=== PATIENT | female | born 1965 | race Caucasian/White ===

== ENCOUNTER → 2018-05-01 09:40 | Outpatient (CLI) | payer OTHER, SELFPAY ==
[2018-05-01 11:56] LABS: Free T3, Triiodothyronine Free 5.17 pg/mL (2.77-5.27); Free T4, Direct Thyroxine 0.94 ng/dL (0.78-2.19)
[2018-05-01 12:10] LABS: Thyroid Stimulating Hormone 2.99 uIU/mL (0.47-4.68)
[2018-05-02 15:20] LABS: Anti Thyroglobulin Antibody < 1 IU/mL (< 2); Thyroglobulin Level 14.5 ng/mL (2.8-40.9); Thyroid Peroxidase Antibodies 1 IU/mL (< 9)
== END ==
PROVIDERS: Family Provider Internal Medicine; PCP Internal Medicine; Visit Provider Naturopath
DX: E03.9 Hypothyroidism, unspecified (principal); D49.7 Neoplasm of unspecified behavior of endocrine glands and other parts of nervous system
CPT/HCPCS: 36415; 84432; 84439; 84443; 84481; 86376; 86800

== ENCOUNTER 2018-08-29 03:26 | Emergency (ER) | payer OTHER, SELFPAY ==
--- NOTE | 2018-08-29 03:29 | ED_ITS ---
HPI - General Adult General Chief complaint: Urogenital-Female Stated complaint: states has a raging bladder infection Time Seen by Provider: 08/29/18 03:28 Source: patient Mode of arrival: ambulatory Limitations: no limitations History of Present Illness HPI narrative: 53-year-old female who has had multiple kidney stones in the past and also urinary tract infections here for evaluation because she states that approximately 0100 hr in the morning she had an onset of which she thinks was a urinary tract infection to include blood in her urine and frequency and hesitancy. She states she recently was on antibiotics for a infection around her eye. She states that afterwards she developed a yeast infection. She was treating that on her own at home. She thinks that her home treatment for the yeast infection is what caused that urinary tract infection. She states that her symptoms do not exactly feel like prior kidney stones but did come on rather suddenly. She states that it does feel somewhat like a urinary tract infection but she has not had 1 in a normal time has not tried anything for her symptoms prior to arrival. She states she has spontaneously passed all of her prior kidney stones. Related Data Home Medications Medication Instructions Recorded Confirmed [Nature-Throid ] #0 12/26/16 magnesium citrate 1 tab PO BID #0 12/26/16 Previous Rx's Medication Instructions Recorded cephalexin [Keflex] 500 mg PO BID 5 Days #10 cap 08/29/18 fluconazole [Diflucan] 100 mg PO DAILY #2 tab 08/29/18 phenazopyridine [Pyridium] 100 mg PO TID 2 Days #6 tab 08/29/18 Allergies Allergy/AdvReac Type Severity Reaction Status Date / Time nut - unspecified Allergy Mild tree nuts Verified 08/29/18 03:46 [NUT - UNSPECIFIED] aspirin [ASPIRIN] Allergy Unknown swelling, Verified 08/29/18 03:46 SOB gluten [GLUTEN] Allergy Unknown Verified 08/29/18 03:46 latex [LATEX] Allergy Unknown Verified 08/29/18 03:46 morphine Allergy Verified 08/29/18 03:46 DAIRY Allergy Unknown Uncoded 08/29/18 03:46 LICOPINE-TOMATOES Allergy Unknown Uncoded 08/29/18 03:46 SUGAR Allergy Unknown Uncoded 08/29/18 03:46 Review of Systems Constitutional Denies fever(s) Cardiovascular Denies chest pain and Denies dyspnea Respiratory Denies dyspnea Gastrointestinal Gastrointestinal: Reports abdominal pain, Denies nausea and Denies vomiting Genitourinary Reports hematuria, Reports urinary frequency, Reports difficulty voiding, Reports dysuria, Denies flank pain, Reports urinary hesitancy, Reports urinary urgency and Denies vaginal discharge Musculoskeletal Denies myalgias and Denies arthralgias Integumentary/Breasts Denies rash Hematologic/Lymphatic Denies easy bleeding and Denies easy bruising PFSH Surgical History History of lumpectomy Status post delivery Status post hysterectomy Status post tubal ligation Family History Grandfather Heart disease Grandmother Diabetes mellitus Mother Age: 70 MS (multiple sclerosis) Grandfather Diabetes mellitus Essential hypertension Grandmother Cancer Social History Smoking Status: Never smoker Family History Grandfather Heart disease Grandmother Diabetes mellitus Mother Age: 70 MS (multiple sclerosis) Grandfather Diabetes mellitus Essential hypertension Grandmother Cancer Social History Smoking Status: Never smoker Exam Initial Vital Signs Initial Vital Signs: Vital Signs Temperature 97.4 F L 08/29/18 04:03 Pulse Rate 74 08/29/18 04:03 Respiratory Rate 16 08/29/18 04:03 Blood Pressure 143/112 H 08/29/18 04:03 Pulse Oximetry 100 08/29/18 04:03 Const General: cooperative, healthy appearing, comfortable, well developed, well groomed and No acute distress Orientation: alert, awake and oriented x3 HENMT Head: normal to inspection and normocephalic Resp Effort & Inspection: normal respiratory effort Cardio Rate: regular rate Rhythm: regular rhythm Pulses: radial pulses present GI Inspection: non-distended Palpation: soft and No firm Back/Spine/Pelvis Back: No CVA tenderness Skin Lesions: no lesions Rashes: no rashes Neuro General: alert, awake and oriented x3 Cognition: normal cognition Speech: speech normal Extrem General: normal to inspection and capillary refill normal Psych Appearance: grossly normal and well kempt Course Orders Ordered: ED Orders 08/29/18 03:55 Urine Culture Stat Urine Microscopic Stat 08/29/18 04:06 Basic Metabolic Panel Stat Discontinued Medications Hydromorphone HCl (Dilaudid) 0.5 mg IV NOW ONE Stop: 08/29/18 03:51 Last Admin: 08/29/18 04:01 Dose: Not Given Hydromorphone HCl (Dilaudid) 1 mg IM Q4H ONE Stop: 08/29/18 03:58 Last Admin: 08/29/18 04:01 Dose: 1 mg Morphine Sulfate (Morphine) 4 mg IV NOW ONE Stop: 08/29/18 03:41 Last Admin: 08/29/18 04:01 Dose: Not Given Vital Signs - 8 hr 08/29/18 04:03 Temperature 97.4 F L Pulse Rate 74 Respiratory Rate 16 Blood Pressure 143/112 H Pulse Oximetry 100 Medical Decision Making Lab Data Lab results reviewed: Yes I reviewed the patient's lab results. Result diagrams: 08/29/18 04:06 Lab Results 08/29/18 08/29/18 Range/Units 03:55 04:06 Sodium 137 (137-145) mmol/L Potassium 4.2 (3.4-5.1) mmol/L Chloride 102 (98-107) mmol/L Carbon Dioxide 25 (22-32) mmol/L BUN 16 (7-17) mg/dL Creatinine 0.80 (0.52-1.04) mg/dL Estimated GFR > 60.0 (>60) mL/min BUN/Creatinine Ratio 20.0 (6-22) Glucose 101 H (70-100) mg/dL Calcium 9.7 (8.4-10.2) mg/dL Urine RBC >100/hpf H (0-5/HPF) Urine WBC 5-10/hpf H (0-5/HPF) Ur Squamous Epith Cells 0-1 /hpf Urine Bacteria Occasional (0-1) (None) Ur Culture Indicated? Specimen cultured Urine Dip Bedside Urine Glucose Negative Bedside Urine Bilirubin + 1 Bedside Urine Ketone +/- 5 Urine Specific [place] 1.015 Bedside Urine Occult Blood ++ Bedside Urine pH 8.0 Bedside Urine Protein ++ 100 Bedside Urine Urobilinogen 1+ 2mg Bedside Urine Nitrite + Positive Bedside Urine Leukocytes +++ 500 Esterase Point of care testing: Urine Dip Bedside Urine Glucose Negative Bedside Urine Bilirubin + 1 Bedside Urine Ketone +/- 5 Urine Specific [place] 1.015 Bedside Urine Occult Blood ++ Bedside Urine pH 8.0 Bedside Urine Protein ++ 100 Bedside Urine Urobilinogen 1+ 2mg Bedside Urine Nitrite + Positive Bedside Urine Leukocytes +++ 500 Esterase MDM Narrative Medical decision making narrative: patient's urinalysis today is nitrite positive. Given her symptoms this is consistent with a urinary tract infection. Her physical exam is not consistent with pyelonephritis. Kidney function is unremarkable. She does have blood in her urine however she states this feels more like a urinary tract infection rather than a kidney stone. Will send home with a prescription for antibiotics and Pyridium. She states that she does get yeast infections when she takes antibiotics will also give a prescription for Diflucan. The urine culture was pending at the time of discharge. Patient was informed of this. She was given return precautions. Patient states that she is not allergic to put feels likes she has a sensitivity to sulfa drugs so she would like to avoid these If possible. Discharge Plan Departure Patient Disposition: Home Clinical Impression: Urinary tract infection Qualifiers: Urinary tract infection type: acute cystitis Hematuria presence: with hematuria Qualified Code(s): N30.01 - Acute cystitis with hematuria Instructions: DI for Urinary Tract Infection (UTI) Activity Restrictions/Additional Instructions: be sure to increase Your fluid intake. Take your antibiotics as directed. contact your primary care doctor for a follow-up. Return to the emergency department any new symptoms. Worsening pain. Inability to take your antibiotics. Back pain. Or any other new or worsening symptoms. Prescriptions: New fluconazole [Diflucan] 100 mg tablet 100 mg PO DAILY Qty: 2 RF: 0 phenazopyridine [Pyridium] 100 mg tablet 100 mg PO TID 2 Days Qty: 6 RF: 0 cephalexin [Keflex] 500 mg capsule 500 mg PO BID 5 Days Qty: 10 RF: 0 No Action magnesium citrate 100 MG tablet 1 tab PO BID Qty: 0 RF: 0 [Nature-Throid ] Qty: 0 RF: 0 Referrals: Khushbu Dan ARNP [Primary Care Provider] -
[2018-08-29] MEDS: HYDROMORPHONE 2 MG INJ 1 MG IM (04:01)
[2018-08-29 04:03] VITALS: BP 143/112; PULSE 74; RESP 16; TEMP 36.3; O2SAT 100; BMI 29.2
[2018-08-29 04:03] LABS: Bacteria Urine Occasional (0-1); RBC Urine >100/HPF (0-5/HPF); Squamous Epithelial Cell Urine 0-1 /HPF; WBC Urine 5-10/HPF (0-5/HPF)
[2018-08-29 04:04] LABS: Culture Indicated Urine Specimen Cultured
[2018-08-29 04:26] LABS: Blood Urea Nitrogen 16 mg/dL (7-17); Calcium 9.7 mg/dL (8.4-10.2); Carbon Dioxide 25 mmol/L (22-32); Chloride 102 mmol/L (98-107); Estimated Glomerular Filt Rate > 60.0 mL/min (>60); Glucose 101 mg/dL (70-100); HEMOLYSIS < 15 (0-50); Potassium 4.2 mmol/L (3.4-5.1); Sodium 137 mmol/L (137-145)
[2018-08-29 04:47] VITALS: BP 146/90; PULSE 68; RESP 16; O2SAT 100
== END 2018-08-29 04:40 | disposition home or self-care (01) ==
PROVIDERS: Emergency Provider Emergency Medicine; Family Provider Internal Medicine; PCP Internal Medicine
DX: N30.01 Acute cystitis with hematuria (principal)
CPT/HCPCS: 36415; 80048; 81003; 81015; 87077; 87086; 87186; 96372; 99282; 99283; J1170

== ENCOUNTER → 2019-08-20 09:51 | Outpatient (CLI) | payer OTHER, MEDICAID, SELFPAY ==
[2019-08-20 11:40] LABS: Free T3, Triiodothyronine Free 4.52 pg/mL (2.77-5.27); Free T4, Direct Thyroxine 0.92 ng/dL (0.78-2.19)
[2019-08-20 11:53] LABS: Thyroid Stimulating Hormone 0.22 uIU/mL (0.47-4.68)
== END ==
PROVIDERS: Family Provider Internal Medicine; PCP Internal Medicine; Referring Provider Naturopath; Visit Provider Naturopath
DX: E03.9 Hypothyroidism, unspecified (principal)
CPT/HCPCS: 36415; 84439; 84443; 84481

== ENCOUNTER 2019-12-01 22:16 | Emergency (ER) | payer OTHER, MEDICAID, SELFPAY ==
[2019-12-01 22:19] VITALS: BP 157/93; PULSE 67; RESP 16; TEMP 36.5; O2SAT 98; BMI 26.0
--- NOTE | 2019-12-01 22:32 | DI.RAD.S_ITS ---
PROCEDURE: XR KNEE RT 3V INDICATIONS: fall right knee pain TECHNIQUE: 3 views of the knee were acquired. COMPARISON: None. FINDINGS: Bones: Comminuted, minimally displaced fracture of the patella. Soft tissues: Small suprapatellar joint effusion. No suspicious soft tissue calcifications. IMPRESSION: Patellar fracture. Dictated by: Debby Jo MD, PhD on 12/02/2019 at 9:01 Approved by: Debby Jo MD, PhD on 12/02/2019 at 9:05
--- NOTE | 2019-12-01 22:33 | ED_ITS ---
HPI - Extremity Injury (Lower) General Chief Complaint: Extremity Injury, Lower Stated Complaint: R knee pain Time Seen by Provider: 12/01/19 22:32 Source: patient Mode of arrival: EMS History of Present Illness HPI Narrative: 54-year-old otherwise healthy recently woman presents after stumbling while walking her dog earlier today and landing on both knees and her left hand. She is complaining of bilateral knee pain however the right side is dramatically worse to the point where she is unable to bear weight. There is a minor abrasion to the palmar surface of her left hand without any bony tenderness. Related Data Home Medications Medication Instructions Recorded Confirmed [Nature-Throid ] #0 12/26/16 08/08/19 magnesium citrate 1 tab PO BID #0 12/26/16 08/08/19 Previous Rx's Medication Instructions Recorded fluconazole [Diflucan] 100 mg PO DAILY #2 tab 08/29/18 fluconazole 150 mg tablet 150 mg PO ONCE #2 tab 08/08/19 oxycodone-acetaminophen [Endocet] 1 tab PO Q6H PRN #14 tab 12/02/19 Allergies Allergy/AdvReac Type Severity Reaction Status Date / Time nut - unspecified Allergy Mild tree nuts Verified 08/08/19 09:18 [NUT - UNSPECIFIED] aspirin [ASPIRIN] Allergy Unknown swelling, Verified 08/08/19 09:18 SOB gluten [GLUTEN] Allergy Unknown Verified 08/08/19 09:18 latex [LATEX] Allergy Unknown Verified 08/08/19 09:18 morphine Allergy Verified 08/08/19 09:18 DAIRY Allergy Unknown Uncoded 08/29/18 03:46 LICOPINE-TOMATOES Allergy Unknown Uncoded 08/29/18 03:46 SUGAR Allergy Unknown Uncoded 08/29/18 03:46 Review of Systems Review of Systems Narrative: Pertinent positive and negative findings as per HPI Remainder of review of systems is otherwise unremarkable for Constitutional: Fevers, chills, weakness ENT: No sore throat, neck pain, ear pain CV: Chest pain, palpitations, dyspnea on exertion Respiratory: Cough, wheeze, dyspnea GI: Nausea, vomiting, diarrhea, change in bowel habits, black or bloody stools : Dysuria, hematuria, flank pain MS: Muscle weakness, numbness, joint swelling or warmth Skin: Rashes, nonhealing lesions Neuro: Syncope, dizziness, tingling Patient History Surgical History History of lumpectomy Status post delivery Status post hysterectomy Status post tubal ligation Family History Grandfather Heart disease Grandmother Diabetes mellitus Mother Age: 71 MS (multiple sclerosis) Grandfather Diabetes mellitus Essential hypertension Grandmother Cancer Social History Smoking Status: Never smoker Smoking Status: Never smoker alcohol intake frequency: a few times a month Substance Use Type: does not use Exam Narrative Exam Narrative: General: Alert appropriate in no acute distress Respiratory: Able to speak in full sentences, no obvious respiratory distress Skin: No obvious rashes, warm and dry Neurologic: Grossly intact no obvious asymmetries or abnormalities Psych, appropriate insight and affect, cooperative Extremity: Left hand palmar surface with minor abrasion. No bony tenderness and no wrist pain. Minor abrasion over both knees. Left knee is otherwise unremarkable without effusion and full range of motion without tenderness at the knee and ankle. Right with minor effusion exquisitely tender over the patella and unable to move the leg secondary to pain. She is neurovascularly intact for all extremities Initial Vital Signs Initial Vital Signs: Vital Signs Temperature 97.7 F 12/01/19 22:19 Pulse Rate 67 12/01/19 22:19 Respiratory Rate 16 12/01/19 22:19 Blood Pressure 157/93 H 12/01/19 22:19 Pulse Oximetry 98 12/01/19 22:19 Course Orders Ordered: ED Orders 12/01/19 22:32 XR knee RT 3V Stat Discontinued Medications Bacitracin (Bacitracin) 1 applic TOP NOW ONE Stop: 12/01/19 23:02 Last Admin: 12/01/19 23:17 Dose: 1 applic Documented by: VERONICA Oxycodone/Acetaminophen (Percocet 5/325) 2 tab PO NOW ONE Stop: 12/02/19 00:53 Last Admin: 12/02/19 01:19 Dose: 2 tab Documented by: WALLY Oxycodone/Acetaminophen (Endocet 5/325 Prepack) 1 bottle MISC SEEINSTR ONE Stop: 12/02/19 00:53 Last Admin: 12/02/19 01:20 Dose: 1 bottle Documented by: WALLY Vital Signs Vital signs: Vital Signs - 8 hr 12/01/19 22:19 Temperature 97.7 F Pulse Rate 67 Respiratory Rate 16 Blood Pressure 157/93 H Pulse Oximetry 98 MDM - Extremity Injury (Lower) Medical Records Attestation: I reviewed the patient's medical records. Imaging Data Right knee x-ray: My Impression: Nondisplaced patellar fracture MDM Narrative Medical decision making narrative: Right patella fracture. Straight leg knee immobilizer. Crutches. Pain control. Ortho follow up. NO other significant trauma. Discharge Plan Departure Patient Disposition: Home Clinical Impression: Patellar fracture Qualifiers: Encounter type: initial encounter Fracture type: closed Fracture morphology: unspecified fracture morphology Fracture alignment: nondisplaced Laterality: right Qualified Code(s): S82.001A - Unspecified fracture of right patella, initial encounter for closed fracture Instructions: DI for Patella Fracture Activity Restrictions/Additional Instructions: Thank you for coming in today Your x-ray does suggest a nondisplaced patellar (knee cap) fracture. I am going to place you in a straight leg knee immobilizer and given crutches. I would recommend that you avoid walking on the right side until you have been seen by the orthopedic surgeon and definitive treatment has been outlined. Using 400 mg of ibuprofen (2 [id number] pills) and 1 Tylenol every 6 hours can be very helpful in controlling pain. For severe pain you can try 400 mg of ibuprofen and 1-2 Percocet. Ice and elevation can also be quite helpful. Dr. Sahni with [facility] is our orthopedist on-call [facility]. Please contact their office tomorrow to set up an appointment for further evaluation and definitive treatment of your injury. Good luck with figuring out the stairs in your house. I hope you heal quickly Prescriptions: New oxycodone-acetaminophen [Endocet] 5-325 mg tablet 1 tab PO Q6H PRN (Reason: pain) Qty: 14 RF: 0 No Action magnesium citrate 100 MG tablet 1 tab PO BID Qty: 0 RF: 0 [Nature-Throid ] Qty: 0 RF: 0 fluconazole 150 mg tablet 150 mg PO ONCE Qty: 2 RF: 0 fluconazole [Diflucan] 100 mg tablet 100 mg PO DAILY Qty: 2 RF: 0 Referrals: Ni,Khushbu, GAS ENGINE PERFORMANCE ENGINEER [Primary Care Provider] -
[2019-12-01] MEDS: BACITRACIN OINT 0.9 GM PCKT 1 APPLIC TOP (23:17)
[2019-12-02] MEDS: OXYCODONE/ACETAMINOPHEN 5/325 TABLET 2 TAB PO (01:19)
[2019-12-02] MEDS: OXYCODONE/APAP 5/325 PREPACK 1 BOTTLE MISC (01:20)
[2019-12-02 04:49] VITALS: BP 152/78; PULSE 65; RESP 15; O2SAT 99
== END 2019-12-02 01:55 | disposition home or self-care (01) ==
PROVIDERS: Emergency Provider Emergency Medicine; Family Provider Internal Medicine; PCP Internal Medicine
DX: S82.001A Unspecified fracture of right patella, initial encounter for closed fracture (principal); S60.512A Abrasion of left hand, initial encounter; W19.XXXA Unspecified fall, initial encounter
CPT/HCPCS: 73562; 99283; 99284

== ENCOUNTER → 2020-04-16 17:04 | Outpatient (CLI) | payer OTHER, MEDICAID, SELFPAY ==
--- NOTE | 2020-04-16 17:05 | DI.MG.S_ITS ---
BILATERAL DIGITAL SCREENING MAMMOGRAM 3D/2D WITH CAD: 04/16/2020 CLINICAL: Routine screening. Family history of breast cancer. Comparison is made to exams dated: 09/11/2017 mammogram - [facility], 06/09/2013 mammogram, and 03/26/2012 mammogram - [facility] The tissue of both breasts is heterogeneously dense. This may lower the sensitivity of mammography. Current study was also evaluated with a Computer Aided Detection (CAD) system. No significant masses, calcifications, or other findings are seen in either breast. There has been no significant interval change. IMPRESSION: NEGATIVE There is no mammographic evidence of malignancy. A 1 year screening mammogram is recommended. This exam was interpreted at Station ID: [id number]. NOTE: For mammograms, a report in lay terms will be sent to the patient. Approximately 15% of breast malignancies will not be visualized mammographically. In the management of a palpable breast mass, a negative mammogram must not discourage biopsy of a clinically suspicious lesion. Electronically Signed By: Hector figueroa/luis:04/19/2020 07:31:11 letter sent: Normal Exam ACR BI-RADS Category 1: Negative [id number]
== END ==
PROVIDERS: Family Provider Internal Medicine; PCP Family Medicine; Referring Provider Family Medicine; Visit Provider Family Medicine
DX: Z12.31 Encounter for screening mammogram for malignant neoplasm of breast (principal); Z80.3 Family history of malignant neoplasm of breast
CPT/HCPCS: 77063; 77067

== ENCOUNTER 2020-05-05 16:00 | Outpatient (RCR) | payer OTHER, MEDICAID, SELFPAY ==
--- NOTE | 2020-01-08 11:15 | PT.OIE ---
Current Diagnoses Stiffness of right knee, not elsewhere classified (01/08/20) Other abnormalities of gait and mobility (01/08/20) Nondisplaced comminuted fracture of right patella, initial encounter for closed fracture (01/08/20) Past Surgical History (Last Reviewed 12/02/19 @ 02:38 by Nell Araiza MD) History of lumpectomy Status post delivery Status post hysterectomy Status post tubal ligation Visit Care Team Role Provider Type HUSAM Mackey Family Provider Advanced Ceramic Research Engineer Primary Care Provider Specialty: Family Practice Address: [address] [place] [address], [facility] [place], [address] Email: [email or web address] Virgilio Sahni MD Attending Provider Physician Referring Provider Specialty: Orthopedic Surgery Address: [address] [place] [address], [address] Email: [email or web address] [facility] Initial Evaluation PT-OP-A Visit Information Start: 01/09/20 08:31 Freq: Status: Active Protocol: Document 01/08/20 10:30 DCW (Rec: 01/09/20 08:47 DCW [id number]) Out-Patient Physical Therapy Visit Information Visit Information Visit Type Initial Evaluation Visit Start Time 10:30 Visit Stop Time 11:15 Total Visit Minutes 45 Visit Number 1 Number of FUEL CELL TECHNICIAN Visits 0 Evaluation Information Evaluation Date 01/08/20 PT-OP-B Current Condition Start: 01/09/20 08:31 Freq: Status: Active Protocol: Document 01/08/20 10:30 DCW (Rec: 01/09/20 08:47 DCW [id number]) Current Condition History of Current Condition Onset Date 12/01/19 Current Complaints R knee pain, stiffness, gait difficulty secondary to patellar fracture History of Current Condition Pt is a 54 year old female 5 weeks s/p R patella fracture suffered from falling when walking her dog. Pt has been in a knee immobilizer ever since, and uses bilateral axillary crutches for support. Per ortho consult, pt is WBAT when wearing her immobilizer, however pt entered the clinic today non-weightbearing. Pt states she prefers to not bear weight when she is on unfamiliar surfaces, but is WBAT when at home, often while using only one crutch. 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 With her background, however, she has been able to provide her own lymphatic drainage, which has greatly decreased her edema. PT-OP-C Subjective Start: 01/09/20 08:31 Freq: Status: Active Protocol: Document 01/08/20 10:30 DCW (Rec: 01/09/20 08:47 DCW [id number]) OP-PT Subjective Patient Comments Patient Comments I had a defect in my right knee, and was told at a young age that if I wanted to keep my natural knee, I would need to take care of it, so I have always been really careful about keeping it strong and mobile, without doing any high-impact activities to it. Patient Reported Progress Improving Patient Questionnaires Lower Extremity Functional Scale LEFS Score 26.25 LEFS Impairment 60 to 79% Impaired (Score 17- 31) PT-OP-F Manual Assessment Start: 01/09/20 08:31 Freq: Status: Active Protocol: Document 01/08/20 10:30 DCW (Rec: 01/09/20 11:10 DCW [id number]) Manual Assessments Soft Tissue Assessment Soft Tissue Mobility Assessment Mild edema in soft tissue surrounding knee, no notable joint effusion Joint Mobility Assessment Joint Mobility Assessment Significant limitations with knee ROM, mobility of patella, tenderness to palpation along medial joint line PT-OP-G Mobility & Gait Start: 01/09/20 08:31 Freq: Status: Active Protocol: Document 01/08/20 10:30 DCW (Rec: 01/09/20 11:10 DCW [id number]) OP Gait Assessment Gait Gait Assistance Required: Standby Assistance Distance (Feet) 190 Assistive Devices Assistive Device Axillary Crutches Gait Deviations General Gait Pattern Antalgic,Decreased Stride Length Factors Limiting Gait Function Factors Limiting Gait Function Decreased Strength,Limited Range of Motion,Pain,Poor Balance Comments Gait Comments Pt ambulated full lap around gym using unilateral axillary crutch. No indications of imbalance or safety concerns. Pt able to bear ~50% weight through leg with no difficulty while wearing immobilizer. Stair Climbing Evaluation Evaluation Level of Assist On Stairs Standby Assistance Devices Stair Climbing Assistive Devices Left Railing,Right Railing Technique/Endurance Stair Climbing Direction Ascend and Descend Stair Climbing Technique Step to Step Number of Steps Climbed 4 Comments Stair Climbing Comments Proper technique, no safety concerns, knowledgable with up with good/down with bad memory device PT-OP-K Range of Motion Start: 01/09/20 08:31 Freq: Status: Active Protocol: Document 01/08/20 10:30 DCW (Rec: 01/09/20 11:10 DCW [id number]) Knee Goniometric Range of Motion Knee Right Knee ROM WFL No Patient Position Supine Flexion Active (degrees) 62 Flexion Passive (degrees) 91 Extension Active (degrees) 0 Extension Passive (degrees) 0 Left Knee ROM WFL Yes Knee ROM Limitations Knee ROM Limitations Muscle Weakness,Muscle Tone, Pain PT-OP-L Special Tests Start: 01/09/20 11:10 Freq: Status: Active Protocol: Document 01/08/20 10:30 DCW (Rec: 01/09/20 11:12 DCW [id number]) Special Tests Knee Special Tests Varus- 0 Degrees Test Results R Medial pain along joint line , no laxity Valgus- 0 Degrees Test Results R Medial pain along joint line , no laxity Posterior Draw Test Results Negative Patella Tap Test Results Negative Tyron Test Test Results R Medial pain along joint line Anterior Draw Test Results Negative PT-OP-M Strength Start: 01/09/20 08:31 Freq: Status: Active Protocol: Document 01/08/20 10:30 DCW (Rec: 01/09/20 11:10 DCW [id number]) Knee Strength Knee Manual Muscle Testing Right Flexion (S2) 3- Fair- Extension (L3) 4 Good PT-OP-T Assessment and Plan Start: 01/09/20 08:31 Freq: Status: Active Protocol: Document 01/08/20 10:30 DCW (Rec: 01/09/20 11:10 DCW [id number]) Physical Therapy Assessment Rehab Potential Rehabilitation Potential Good Evaluation Complexity Number of Personal Factors/Comorbidities 1-2 Number of Body Systems Impaired 1-2 Clinical Presentation at Evaluation Stable Impairments Impairments Activity Tolerance,Functional Activities,Functional Mobility ,Gait,Pain,ROM,Strength Goals Three Impairment Limited knee AROM flexion to 62? Short Term Goal (STG) R knee flexion AROM to 100? to improve gait on stairs STG Duration 02/08/20 Pulmonary Nurse Practitioner Goal (LTG) R knee AROM to 120? flexion to enable pt to properly navigate obstacles while hiking. Two Impairment Pt unable to bear weight through flexed knee Senior Care Goal (LTG) Pt to return to holding a semi -squat position with no pain for 20 minutes in order to return to her normal positioning during her job as a massage therapist LTG Duration 03/10/20 One Impairment Pt does not have an appropriate home exercie program Short Term Goal (STG) Pt to be independent and compliant with an appropriate HEP STG Duration 02/08/20 Assessment Summary Assessment Pt presents with pain, decreased ROM, and weakness following a right patella fracture following a fall. Pt is currently using a knee immobilizing brace, and uses axillary crutches to ambulate WBAT, although when out in community walking, she typically prefers non-weight bearing in R LE. Pt complaints of continuing pain with weight bearing, tenderness along her medial joint line, as well as a positive Tyron test, may all just be secondary to her fracture, however they may also indicate meniscal involvement, most likely a mild sprain from the fall. Pt will likely heal with rehab and time, however if rehab does not progress as expected, she may benefit from eventual imaging. Overall, pt doing fairly well, notes she has a defect in her right knee, and was unable to describe it further, however at baseline is against any sort of impact through her knee. Pt should benefit from skilled PT focusing on ROM, gait training, and strengthening, as well as eventual progression of weight bearing through right knee. Physical Therapy Plan Frequency and Duration Frequency of Treatment 2x/Week Duration of Treatment 10 weeks Plan of Care Start Date 01/08/20 Plan of Care End Date 03/18/20 Therapeutic Interventions Therapeutic Interventions Aquatic Therapy,Gait Training, Home Exercise Program,Joint Mobilizations,Manual Therapy, Neuromuscular Re-education, Patient/Caregiver Education, Self-Care/Home Management,Soft Tissue Mobilization, Therapeutic Exercises Modalities Cold Pack/Ice Massage,Electric Stimulation,Hot Packs, Ultrasound Next Visit Focus/Plan Next Note Type Treatment Note Next Visit Plan ROM, strengthening, gait training
--- NOTE | 2020-01-08 11:15 | PT.OPPOC ---
Physical, Occupational & Speech Therapy At [facility] Current Diagnoses Stiffness of right knee, not elsewhere classified (01/08/20) Other abnormalities of gait and mobility (01/08/20) Nondisplaced comminuted fracture of right patella, initial encounter for closed fracture (01/08/20) Visit Care Team Role Provider Type HUSAM Mackey Family Provider Advanced Grinding Machine Operator Portable Primary Care Provider Specialty: Family Practice Address: [address] [place] [address], [facility] [place], [address] Email: [email or web address] Provider Physician Referring Provider Specialty: Orthopedic Surgery Address: [address] [place] [address], [id number] Email: [email or web address] Plan Of Care PT-OP-T Assessment and Plan Start: 01/09/20 08:31 Freq: Status: Active Protocol: Document 01/08/20 10:30 DCW (Rec: 01/09/20 11:10 DCW [id number]) Physical Therapy Assessment Rehab Potential Rehabilitation Potential Good Evaluation Complexity Number of Personal Factors/Comorbidities 1-2 Number of Body Systems Impaired 1-2 Clinical Presentation at Evaluation Stable Impairments Impairments Activity Tolerance,Functional Activities,Functional Mobility ,Gait,Pain,ROM,Strength Goals Three Impairment Limited knee AROM flexion to 62? Short Term Goal (STG) R knee flexion AROM to 100? to improve gait on stairs STG Duration 02/08/20 Senior Living Goal (LTG) R knee AROM to 120? flexion to enable pt to properly navigate obstacles while hiking. 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 Pt is currently using a knee immobilizing brace, and uses axillary crutches to ambulate WBAT, although when out in community walking, she typically prefers non-weight bearing in R LE. Pt complaints of continuing pain with weight bearing, tenderness along her medial joint line, as well as a positive Tyron test, may all just be secondary to her fracture, however they may also indicate meniscal involvement, most likely a mild sprain from the fall. Pt will likely heal with rehab and time, however if rehab does not progress as expected, she may benefit from eventual imaging. Overall, pt doing fairly well, notes she has a defect in her right knee, and was unable to describe it further, however at baseline is against any sort of impact through her knee. Pt should benefit from skilled PT focusing on ROM, gait training, and strengthening, as well as eventual progression of weight bearing through right knee. Physical Therapy Plan Frequency and Duration Frequency of Treatment 2x/Week Duration of Treatment 10 weeks Plan of Care Start Date 01/08/20 Plan of Care End Date 03/18/20 Therapeutic Interventions Therapeutic Interventions Aquatic Therapy,Gait Training, Home Exercise Program,Joint Mobilizations,Manual Therapy, Neuromuscular Re-education, Patient/Caregiver Education, Self-Care/Home Management,Soft Tissue Mobilization, Therapeutic Exercises Modalities Cold Pack/Ice Massage,Electric Stimulation,Hot Packs, Ultrasound Next Visit Focus/Plan Next Note Type Treatment Note Next Visit Plan ROM, strengthening, gait training Plan of Care Dates Plan of Care Start Date 01/08/20 Plan of Care End Date 03/18/20 Electronically Signed by: Gennaro Granados, PT 01/09/20 9502 Please Sign and Return: I have reviewed this Plan of Care and certify that the skilled therapy services above are required to meet the patient?s needs. Physician Signature Date Printed Name and Credentials Clinical Instructor Signature Printed Name and Credentials
--- NOTE | 2020-01-12 10:33 | PT.OTN ---
Current Diagnoses Stiffness of right knee, not elsewhere classified (01/12/20) Other abnormalities of gait and mobility (01/12/20) Nondisplaced comminuted fracture of right patella, initial encounter for closed fracture (01/12/20) Physical Therapy Treatment Note PT-OP-A Visit Information Start: 01/09/20 08:31 Freq: Status: Active Protocol: Document 01/12/20 09:45 DCW (Rec: 01/12/20 10:30 DCW [id number]) Out-Patient Physical Therapy Visit Information Visit Information Visit Type Treatment Note Visit Start Time 09:45 Visit Stop Time 10:35 Total Visit Minutes 50 Visit Number 2 Number of 7TH GRADE SOCIAL STUDIES TEACHER Visits 0 Evaluation Information Evaluation Date 01/08/20 PT-OP-B Current Condition Start: 01/09/20 08:31 Freq: Status: Active Protocol: Document 01/08/20 10:30 DCW (Rec: 01/09/20 08:47 DCW [id number]) Current Condition History of Current Condition Onset Date 12/01/19 Current Complaints R knee pain, stiffness, gait difficulty secondary to patellar fracture History of Current Condition Pt is a 54 year old female 5 weeks s/p R patella fracture suffered from falling when walking her dog. Pt has been in a knee immobilizer ever since, and uses bilateral axillary crutches for support. Per ortho consult, pt is WBAT when wearing her immobilizer, however pt entered the clinic today nonweightbearing. Pt states she prefers to not bear weight when she is on unfamiliar surfaces, but is WBAT when at home, often while using only one crutch. 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 With her background, however, she has been able to provide her own lymphatic drainage, which has greatly decreased her edema. PT-OP-C Subjective Start: 01/09/20 08:31 Freq: Status: Active Protocol: Document 01/12/20 09:45 DCW (Rec: 01/12/20 10:30 DCW [id number]) OP-PT Subjective Patient Comments Patient Comments Pt reports she is doing well today. PT-OP-F Manual Assessment Start: 01/09/20 08:31 Freq: Status: Active Protocol: Document 01/08/20 10:30 DCW (Rec: 01/09/20 11:10 DCW [id number]) Manual Assessments Soft Tissue Assessment Soft Tissue Mobility Assessment Mild edema in soft tissue surrounding knee, no notable joint effusion Joint Mobility Assessment Joint Mobility Assessment Significant limitations with knee ROM, mobility of patella, tenderness to palpation along medial joint line PT-OP-G Mobility & Gait Start: 01/09/20 08:31 Freq: Status: Active Protocol: Document 01/08/20 10:30 DCW (Rec: 01/09/20 11:10 DCW [id number]) OP Gait Assessment Gait Gait Assistance Required: Standby Assistance Distance (Feet) 190 Assistive Devices Assistive Device Axillary Crutches Gait Deviations General Gait Pattern Antalgic,Decreased Stride Length Factors Limiting Gait Function Factors Limiting Gait Function Decreased Strength,Limited Range of Motion,Pain,Poor Balance Comments Gait Comments Pt ambulated full lap around gym using unilateral axillary crutch. No indications of imbalance or safety concerns. Pt able to bear ~50% weight through leg with no difficulty while wearing immobilizer. Stair Climbing Evaluation Evaluation Level of Assist On Stairs Standby Assistance Devices Stair Climbing Assistive Devices Left Railing,Right Railing Technique/Endurance Stair Climbing Direction Ascend and Descend Stair Climbing Technique Step to Step Number of Steps Climbed 4 Comments Stair Climbing Comments Proper technique, no safety concerns, knowledgable with up with good/down with bad memory device PT-OP-K Range of Motion Start: 01/09/20 08:31 Freq: Status: Active Protocol: Document 01/08/20 10:30 DCW (Rec: 01/09/20 11:10 DCW [id number]) Knee Goniometric Range of Motion Knee Right Knee ROM WFL No Patient Position Supine Flexion Active (degrees) 62 Flexion Passive (degrees) 91 Extension Active (degrees) 0 Extension Passive (degrees) 0 Left Knee ROM WFL Yes Knee ROM Limitations Knee ROM Limitations Muscle Weakness,Muscle Tone, Pain PT-OP-L Special Tests Start: 01/09/20 11:10 Freq: Status: Active Protocol: Document 01/08/20 10:30 DCW (Rec: 01/09/20 11:12 DCW [id number]) Special Tests Knee Special Tests Varus- 0 Degrees Test Results R Medial pain along joint line , no laxity Valgus- 0 Degrees Test Results R Medial pain along joint line , no laxity Posterior Draw Test Results Negative Patella Tap Test Results Negative Tyron Test Test Results R Medial pain along joint line Anterior Draw Test Results Negative PT-OP-M Strength Start: 01/09/20 08:31 Freq: Status: Active Protocol: Document 01/08/20 10:30 DCW (Rec: 01/09/20 11:10 DCW [id number]) Knee Strength Knee Manual Muscle Testing Right Flexion (S2) 3- Fair- Extension (L3) 4 Good PT-OP-Q Treatments Start: 01/09/20 08:31 Freq: Status: Active Protocol: Document 01/12/20 09:45 DCW (Rec: 01/12/20 10:30 DCW [id number]) Cardio Equipment Recumbent Bicycle Duration (Minutes) 5 Resistance 0 Seat Position 1 Other Unable to perform full rotations Gym Equipment Shuttle Recovery Bilateral Squats Details Mini squats, WBing L>R Resistance 37# Shuttle Recovery Platform Stable Therapeutic Exercises Supine Exercises 2 Supine Exercise Name SAQ Side right Resistance 4# 1 Supine Exercise Name SLR Side right Standing Exercises 3 Standing Exercise Name Hip Abduction Side right Resistance Lv 2 Equipment Used T-band 2 Standing Exercise Name Hip Extension Side right Resistance Lv 2 Equipment Used T-band 1 Standing Exercise Name TKE Side right Resistance Lv 2 Equipment Used T-band Manual Therapy Treatment Joint Mobilizations 1 Joint Patella Direction Inf/Sup, Med/Lat Grade II Body Position Supine PT-OP-R Modalities Start: 01/09/20 08:31 Freq: Status: Active Protocol: Document 01/12/20 09:45 DCW (Rec: 01/12/20 10:30 DCW [id number]) Hot Pack/Cold Pack Treatment Cold Pack Location R knee Patient Position Hooklying Treatment Duration (minutes) 10 PT-OP-T Assessment and Plan Start: 01/09/20 08:31 Freq: Status: Active Protocol: Document 01/12/20 09:45 DCW (Rec: 01/12/20 10:30 DCW [id number]) Physical Therapy Assessment Impairments Impairments Activity Tolerance,Functional Activities,Functional Mobility ,Gait,Pain,ROM,Strength Goals Three Impairment Limited knee AROM flexion to 62? Short Term Goal (STG) R knee flexion AROM to 100? to improve gait on stairs STG Duration 02/08/20 Skilled Nursing Goal (LTG) R knee AROM to 120? flexion to enable pt to properly navigate obstacles while hiking. 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 Pt noted mild tenderness along patella tendon with direct palpation during patella mobilization. Physical Therapy Plan Frequency and Duration Frequency of Treatment 2x/Week Duration of Treatment 10 weeks Plan of Care Start Date 01/08/20 Plan of Care End Date 03/18/20 Therapeutic Interventions Therapeutic Interventions Aquatic Therapy,Gait Training, Home Exercise Program,Joint Mobilizations,Manual Therapy, Neuromuscular Re-education, Patient/Caregiver Education, Self-Care/Home Management,Soft Tissue Mobilization, Therapeutic Exercises Modalities Cold Pack/Ice Massage,Electric Stimulation,Hot Packs, Ultrasound Next Visit Focus/Plan Next Note Type Treatment Note Next Visit Plan Assess pt tolerance to previous treatment, quad strengthening, R knee ROM
--- NOTE | 2020-01-15 09:45 | PT.OTN ---
Current Diagnoses Stiffness of right knee, not elsewhere classified (01/15/20) Other abnormalities of gait and mobility (01/15/20) Nondisplaced comminuted fracture of right patella, initial encounter for closed fracture (01/15/20) Physical Therapy Treatment Note PT-OP-A Visit Information Start: 01/09/20 08:31 Freq: Status: Active Protocol: Document 01/15/20 09:05 SP (Rec: 01/15/20 10:02 SP [id number]) Out-Patient Physical Therapy Visit Information Visit Information Visit Type Treatment Note Visit Start Time 09:05 Visit Stop Time 09:45 Total Visit Minutes 40 Visit Number 3 Number of BURNISHING MACHINE OPERATOR Visits 1 PT-OP-B Current Condition Start: 01/09/20 08:31 Freq: Status: Active Protocol: Document 01/08/20 10:30 DCW (Rec: 01/09/20 08:47 DCW [id number]) Current Condition History of Current Condition Onset Date 12/01/19 Current Complaints R knee pain, stiffness, gait difficulty secondary to patellar fracture History of Current Condition Pt is a 54 year old female 5 weeks s/p R patella fracture suffered from falling when walking her dog. Pt has been in a knee immobilizer ever since, and uses bilateral axillary crutches for support. Per ortho consult, pt is WBAT when wearing her immobilizer, however pt entered the clinic today nonweightbearing. Pt states she prefers to not bear weight when she is on unfamiliar surfaces, but is WBAT when at home, often while using only one crutch. 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 With her background, however, she has been able to provide her own lymphatic drainage, which has greatly decreased her edema. PT-OP-C Subjective Start: 01/09/20 08:31 Freq: Status: Active Protocol: Document 01/15/20 09:05 SP (Rec: 01/15/20 10:02 SP [id number]) OP-PT Subjective Patient Comments Patient Comments Pt reports having some discomfort soreness over R tibialis anterior pre PT. Responded well to last tx with knee flexion movement for first time. Is having uncomfortable clicking/ bouncing R patella over tibia . PT-OP-F Manual Assessment Start: 01/09/20 08:31 Freq: Status: Active Protocol: Document 01/08/20 10:30 DCW (Rec: 01/09/20 11:10 DCW [id number]) Manual Assessments Soft Tissue Assessment Soft Tissue Mobility Assessment Mild edema in soft tissue surrounding knee, no notable joint effusion Joint Mobility Assessment Joint Mobility Assessment Significant limitations with knee ROM, mobility of patella, tenderness to palpation along medial joint line PT-OP-G Mobility & Gait Start: 01/09/20 08:31 Freq: Status: Active Protocol: Document 01/08/20 10:30 DCW (Rec: 01/09/20 11:10 DCW [id number]) OP Gait Assessment Gait Gait Assistance Required: Standby Assistance Distance (Feet) 190 Assistive Devices Assistive Device Axillary Crutches Gait Deviations General Gait Pattern Antalgic,Decreased Stride Length Factors Limiting Gait Function Factors Limiting Gait Function Decreased Strength,Limited Range of Motion,Pain,Poor Balance Comments Gait Comments Pt ambulated full lap around gym using unilateral axillary crutch. No indications of imbalance or safety concerns. Pt able to bear ~50% weight through leg with no difficulty while wearing immobilizer. Stair Climbing Evaluation Evaluation Level of Assist On Stairs Standby Assistance Devices Stair Climbing Assistive Devices Left Railing,Right Railing Technique/Endurance Stair Climbing Direction Ascend and Descend Stair Climbing Technique Step to Step Number of Steps Climbed 4 Comments Stair Climbing Comments Proper technique, no safety concerns, knowledgable with up with good/down with bad memory device PT-OP-K Range of Motion Start: 01/09/20 08:31 Freq: Status: Active Protocol: Document 01/08/20 10:30 DCW (Rec: 01/09/20 11:10 DCW [id number]) Knee Goniometric Range of Motion Knee Right Knee ROM WFL No Patient Position Supine Flexion Active (degrees) 62 Flexion Passive (degrees) 91 Extension Active (degrees) 0 Extension Passive (degrees) 0 Left Knee ROM WFL Yes Knee ROM Limitations Knee ROM Limitations Muscle Weakness,Muscle Tone, Pain PT-OP-L Special Tests Start: 01/09/20 11:10 Freq: Status: Active Protocol: Document 01/08/20 10:30 DCW (Rec: 01/09/20 11:12 DCW [id number]) Special Tests Knee Special Tests Varus- 0 Degrees Test Results R Medial pain along joint line , no laxity Valgus- 0 Degrees Test Results R Medial pain along joint line , no laxity Posterior Draw Test Results Negative Patella Tap Test Results Negative Tyron Test Test Results R Medial pain along joint line Anterior Draw Test Results Negative PT-OP-M Strength Start: 01/09/20 08:31 Freq: Status: Active Protocol: Document 01/08/20 10:30 DCW (Rec: 01/09/20 11:10 DCW [id number]) Knee Strength Knee Manual Muscle Testing Right Flexion (S2) 3- Fair- Extension (L3) 4 Good PT-OP-Q Treatments Start: 01/09/20 08:31 Freq: Status: Active Protocol: Document 01/15/20 09:05 SP (Rec: 01/15/20 10:02 SP [id number]) Cardio Equipment Recumbent Elliptical ([employer]) Duration (Minutes) 5 Resistance 1 Seat Position 6 Gym Equipment Shuttle Recovery Bilateral Squats Details Mini squats, WBing L=R x20 reps Resistance 37# Shuttle Recovery Platform Stable Reps/Time Purple ball b/t knees, L sled block down Therapeutic Exercises Supine Exercises hip abd Supine Exercise Name hip abd with ER Side right Reps/Minutes x20 2 Supine Exercise Name SAQ, cream bolster [id number] Side right Manual Therapy Treatment Joint Mobilizations 1 Joint Patella Direction Inf/Sup, Med/Lat Grade II Body Position Supine PT-OP-R Modalities Start: 01/09/20 08:31 Freq: Status: Active Protocol: Document 01/12/20 09:45 DCW (Rec: 01/12/20 10:30 DCW [id number]) Hot Pack/Cold Pack Treatment Cold Pack Location R knee Patient Position Hooklying Treatment Duration (minutes) 10 PT-OP-T Assessment and Plan Start: 01/09/20 08:31 Freq: Status: Active Protocol: Document 01/15/20 09:05 SP (Rec: 01/15/20 10:02 SP [id number]) Physical Therapy Assessment Goals Three Impairment Limited knee AROM flexion to 62? Short Term Goal (STG) R knee flexion AROM to 100? to improve gait on stairs STG Duration 02/08/20 Custodial Goal (LTG) R knee AROM to 120? flexion to enable pt to properly navigate obstacles while hiking. 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 Cued for proper alignment of R knee over second toe to engage R hip abductors and diminish medial tracking of R patella. Pt tolerated tx well and open to education regarding proper body mechanics and muscle recruitment. Continue PT to increase strength in quads and increase R hip activation to reduce stress on R patella and return to prior level of function. Physical Therapy Plan Frequency and Duration Frequency of Treatment 2x/Week Duration of Treatment 10 weeks Plan of Care Start Date 01/08/20 Plan of Care End Date 03/18/20 Therapeutic Interventions Therapeutic Interventions Aquatic Therapy,Gait Training, Home Exercise Program,Joint Mobilizations,Manual Therapy, Neuromuscular Re-education, Patient/Caregiver Education, Self-Care/Home Management,Soft Tissue Mobilization, Therapeutic Exercises Modalities Cold Pack/Ice Massage,Electric Stimulation,Hot Packs, Ultrasound Next Visit Focus/Plan Next Note Type Treatment Note Next Visit Plan Assess pt tolerance to previous treatment, quad strengthening, R knee ROM, review HEP with emphasis on standing exercises with theraband.
--- NOTE | 2020-01-20 15:20 | PT.OTN ---
Current Diagnoses Stiffness of right knee, not elsewhere classified (01/20/20) Other abnormalities of gait and mobility (01/20/20) Nondisplaced comminuted fracture of right patella, initial encounter for closed fracture (01/20/20) Physical Therapy Treatment Note PT-OP-A Visit Information Start: 01/09/20 08:31 Freq: Status: Active Protocol: Document 01/20/20 14:36 DCW (Rec: 01/20/20 15:20 DCW [id number]) Out-Patient Physical Therapy Visit Information Visit Information Visit Type Treatment Note Visit Note 6 minutes late Visit Start Time 14:36 Visit Stop Time 15:15 Total Visit Minutes 39 Visit Number 4 Number of EMAIL MARKETING INTERN Visits 0 PT-OP-B Current Condition Start: 01/09/20 08:31 Freq: Status: Active Protocol: Document 01/08/20 10:30 DCW (Rec: 01/09/20 08:47 DCW [id number]) Current Condition History of Current Condition Onset Date 12/01/19 Current Complaints R knee pain, stiffness, gait difficulty secondary to patellar fracture History of Current Condition Pt is a 54 year old female 5 weeks s/p R patella fracture suffered from falling when walking her dog. Pt has been in a knee immobilizer ever since, and uses bilateral axillary crutches for support. Per ortho consult, pt is WBAT when wearing her immobilizer, however pt entered the clinic today nonweightbearing. Pt states she prefers to not bear weight when she is on unfamiliar surfaces, but is WBAT when at home, often while using only one crutch. 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 With her background, however, she has been able to provide her own lymphatic drainage, which has greatly decreased her edema. PT-OP-C Subjective Start: 01/09/20 08:31 Freq: Status: Active Protocol: Document 01/20/20 14:36 DCW (Rec: 01/20/20 15:20 DCW [id number]) OP-PT Subjective Patient Comments Patient Comments Pt reports she was like the [employer]-Puft [employer]are[employer] Man yesterday, with significat swelling around knee and down into her foot. PT-OP-F Manual Assessment Start: 01/09/20 08:31 Freq: Status: Active Protocol: Document 01/08/20 10:30 DCW (Rec: 01/09/20 11:10 DCW [id number]) Manual Assessments Soft Tissue Assessment Soft Tissue Mobility Assessment Mild edema in soft tissue surrounding knee, no notable joint effusion Joint Mobility Assessment Joint Mobility Assessment Significant limitations with knee ROM, mobility of patella, tenderness to palpation along medial joint line PT-OP-G Mobility & Gait Start: 01/09/20 08:31 Freq: Status: Active Protocol: Document 01/08/20 10:30 DCW (Rec: 01/09/20 11:10 DCW [id number]) OP Gait Assessment Gait Gait Assistance Required: Standby Assistance Distance (Feet) 190 Assistive Devices Assistive Device Axillary Crutches Gait Deviations General Gait Pattern Antalgic,Decreased Stride Length Factors Limiting Gait Function Factors Limiting Gait Function Decreased Strength,Limited Range of Motion,Pain,Poor Balance Comments Gait Comments Pt ambulated full lap around gym using unilateral axillary crutch. No indications of imbalance or safety concerns. Pt able to bear ~50% weight through leg with no difficulty while wearing immobilizer. Stair Climbing Evaluation Evaluation Level of Assist On Stairs Standby Assistance Devices Stair Climbing Assistive Devices Left Railing,Right Railing Technique/Endurance Stair Climbing Direction Ascend and Descend Stair Climbing Technique Step to Step Number of Steps Climbed 4 Comments Stair Climbing Comments Proper technique, no safety concerns, knowledgable with up with good/down with bad memory device PT-OP-K Range of Motion Start: 01/09/20 08:31 Freq: Status: Active Protocol: Document 01/08/20 10:30 DCW (Rec: 01/09/20 11:10 DCW [id number]) Knee Goniometric Range of Motion Knee Right Knee ROM WFL No Patient Position Supine Flexion Active (degrees) 62 Flexion Passive (degrees) 91 Extension Active (degrees) 0 Extension Passive (degrees) 0 Left Knee ROM WFL Yes Knee ROM Limitations Knee ROM Limitations Muscle Weakness,Muscle Tone, Pain PT-OP-L Special Tests Start: 01/09/20 11:10 Freq: Status: Active Protocol: Document 01/08/20 10:30 DCW (Rec: 01/09/20 11:12 DCW [id number]) Special Tests Knee Special Tests Varus- 0 Degrees Test Results R Medial pain along joint line , no laxity Valgus- 0 Degrees Test Results R Medial pain along joint line , no laxity Posterior Draw Test Results Negative Patella Tap Test Results Negative Tyron Test Test Results R Medial pain along joint line Anterior Draw Test Results Negative PT-OP-M Strength Start: 01/09/20 08:31 Freq: Status: Active Protocol: Document 01/08/20 10:30 DCW (Rec: 01/09/20 11:10 DCW [id number]) Knee Strength Knee Manual Muscle Testing Right Flexion (S2) 3- Fair- Extension (L3) 4 Good PT-OP-Q Treatments Start: 01/09/20 08:31 Freq: Status: Active Protocol: Document 01/20/20 14:36 DCW (Rec: 01/20/20 15:20 DCW [id number]) Cardio Equipment Recumbent Bicycle Duration (Minutes) 5 Resistance 1 Seat Position 4 Gym Equipment Shuttle Recovery Bilateral Squats Details Mini squats, WBing L=R x20 reps Resistance 50# Shuttle Recovery Platform Stable Therapeutic Exercises Standing Exercises 4 Standing Exercise Name Flexion step stretch Side left Reps/Minutes 5 hold 3 Standing Exercise Name Hip Abduction Side bilateral Resistance Lv 2 Equipment Used T-band 2 Standing Exercise Name Hip Extension Side right Resistance Lv 2 Equipment Used T-band 1 Standing Exercise Name TKE Side right Resistance Lv 2 Equipment Used T-band Manual Therapy Treatment Joint Mobilizations 1 Joint Patella Direction Inf/Sup, Med/Lat Grade II Body Position Supine PT-OP-R Modalities Start: 01/09/20 08:31 Freq: Status: Active Protocol: Document 01/12/20 09:45 DCW (Rec: 01/12/20 10:30 DCW [id number]) Hot Pack/Cold Pack Treatment Cold Pack Location R knee Patient Position Hooklying Treatment Duration (minutes) 10 PT-OP-T Assessment and Plan Start: 01/09/20 08:31 Freq: Status: Active Protocol: Document 01/20/20 14:36 DCW (Rec: 01/20/20 15:20 DCW [id number]) Physical Therapy Assessment Impairments Impairments Activity Tolerance,Functional Activities,Functional Mobility ,Gait,Pain,ROM,Strength Goals Three Impairment Limited knee AROM flexion to 62? Short Term Goal (STG) R knee flexion AROM to 100? to improve gait on stairs STG Duration 02/08/20 Website/Blog Editor Goal (LTG) R knee AROM to 120? flexion to enable pt to properly navigate obstacles while hiking. Two Impairment Pt unable to bear weight through flexed knee Halfway Goal (LTG) Pt to return to holding a semi -squat position with no pain for 20 minutes in order to return to her normal positioning during her job as a massage therapist LTG Duration 03/10/20 One Impairment Pt does not have an appropriate home exercise program Short Term Goal (STG) Pt to be independent and compliant with an appropriate HEP STG Duration 02/08/20 Assessment Summary Assessment Pt much improved with both knee ROM and mobility of patella. Pt's reports of increased edema not noticeable today, other than mild joint effusion around ankle. Pt gait improving, pt able to get into a better heel strike today with cueing while walking through gym. Instructed pt to decrease standing TherEx from 2x to 1x to decrease swelling Physical Therapy Plan Frequency and Duration Frequency of Treatment 2x/Week Duration of Treatment 10 weeks Plan of Care Start Date 01/08/20 Plan of Care End Date 03/18/20 Therapeutic Interventions Therapeutic Interventions Aquatic Therapy,Gait Training, Home Exercise Program,Joint Mobilizations,Manual Therapy, Neuromuscular Re-education, Patient/Caregiver Education, Self-Care/Home Management,Soft Tissue Mobilization, Therapeutic Exercises Modalities Cold Pack/Ice Massage,Electric Stimulation,Hot Packs, Ultrasound Next Visit Focus/Plan Next Note Type Treatment Note Next Visit Plan Assess pt tolerance to previous treatment, quad strengthening, R knee ROM, review HEP with emphasis on standing exercises with theraband.
--- NOTE | 2020-01-22 11:19 | PT.OTN ---
Current Diagnoses Stiffness of right knee, not elsewhere classified (01/22/20) Other abnormalities of gait and mobility (01/22/20) Nondisplaced comminuted fracture of right patella, initial encounter for closed fracture (01/22/20) Physical Therapy Treatment Note PT-OP-A Visit Information Start: 01/09/20 08:31 Freq: Status: Active Protocol: Document 01/22/20 10:40 DCW (Rec: 01/22/20 11:19 DCW [id number]) Out-Patient Physical Therapy Visit Information Visit Information Visit Type Treatment Note Visit Note Late start - Therapist ran late with previous patient Visit Start Time 10:40 Visit Stop Time 11:20 Total Visit Minutes 40 Visit Number 5 Number of COMMUNITY SERVICE OFFICER Visits 0 PT-OP-B Current Condition Start: 01/09/20 08:31 Freq: Status: Active Protocol: Document 01/08/20 10:30 DCW (Rec: 01/09/20 08:47 DCW [id number]) Current Condition History of Current Condition Onset Date 12/01/19 Current Complaints R knee pain, stiffness, gait difficulty secondary to patellar fracture History of Current Condition Pt is a 54 year old female 5 weeks s/p R patella fracture suffered from falling when walking her dog. Pt has been in a knee immobilizer ever since, and uses bilateral axillary crutches for support. Per ortho consult, pt is WBAT when wearing her immobilizer, however pt entered the clinic today nonweightbearing. Pt states she prefers to not bear weight when she is on unfamiliar surfaces, but is WBAT when at home, often while using only one crutch. 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 With her background, however, she has been able to provide her own lymphatic drainage, which has greatly decreased her edema. PT-OP-C Subjective Start: 01/09/20 08:31 Freq: Status: Active Protocol: Document 01/22/20 10:40 DCW (Rec: 01/22/20 11:19 DCW [id number]) OP-PT Subjective Patient Comments Patient Comments It feels like the patella is separate from the leg. PT-OP-F Manual Assessment Start: 07/10/20 08:31 Freq: Status: Active Protocol: Document 01/08/20 10:30 DCW (Rec: 01/09/20 11:10 DCW [id number]) Manual Assessments Soft Tissue Assessment Soft Tissue Mobility Assessment Mild edema in soft tissue surrounding knee, no notable joint effusion Joint Mobility Assessment Joint Mobility Assessment Significant limitations with knee ROM, mobility of patella, tenderness to palpation along medial joint line PT-OP-G Mobility & Gait Start: 01/09/20 08:31 Freq: Status: Active Protocol: Document 01/08/20 10:30 DCW (Rec: 01/09/20 11:10 DCW [id number]) OP Gait Assessment Gait Gait Assistance Required: Standby Assistance Distance (Feet) 190 Assistive Devices Assistive Device Axillary Crutches Gait Deviations General Gait Pattern Antalgic,Decreased Stride Length Factors Limiting Gait Function Factors Limiting Gait Function Decreased Strength,Limited Range of Motion,Pain,Poor Balance Comments Gait Comments Pt ambulated full lap around gym using unilateral axillary crutch. No indications of imbalance or safety concerns. Pt able to bear ~50% weight through leg with no difficulty while wearing immobilizer. Stair Climbing Evaluation Evaluation Level of Assist On Stairs Standby Assistance Devices Stair Climbing Assistive Devices Left Railing,Right Railing Technique/Endurance Stair Climbing Direction Ascend and Descend Stair Climbing Technique Step to Step Number of Steps Climbed 4 Comments Stair Climbing Comments Proper technique, no safety concerns, knowledgable with up with good/down with bad memory device PT-OP-K Range of Motion Start: 01/09/20 08:31 Freq: Status: Active Protocol: Document 01/08/20 10:30 DCW (Rec: 01/09/20 11:10 DCW [id number]) Knee Goniometric Range of Motion Knee Right Knee ROM WFL No Patient Position Supine Flexion Active (degrees) 62 Flexion Passive (degrees) 91 Extension Active (degrees) 0 Extension Passive (degrees) 0 Left Knee ROM WFL Yes Knee ROM Limitations Knee ROM Limitations Muscle Weakness,Muscle Tone, Pain PT-OP-L Special Tests Start: 01/09/20 11:10 Freq: Status: Active Protocol: Document 01/08/20 10:30 DCW (Rec: 01/09/20 11:12 DCW [id number]) Special Tests Knee Special Tests Varus- 0 Degrees Test Results R Medial pain along joint line , no laxity Valgus- 0 Degrees Test Results R Medial pain along joint line , no laxity Posterior Draw Test Results Negative Patella Tap Test Results Negative Tyron Test Test Results R Medial pain along joint line Anterior Draw Test Results Negative PT-OP-M Strength Start: 01/09/20 08:31 Freq: Status: Active Protocol: Document 01/08/20 10:30 DCW (Rec: 01/09/20 11:10 DCW [id number]) Knee Strength Knee Manual Muscle Testing Right Flexion (S2) 3- Fair- Extension (L3) 4 Good PT-OP-Q Treatments Start: 01/09/20 08:31 Freq: Status: Active Protocol: Document 01/22/20 10:40 DCW (Rec: 01/22/20 11:19 DCW [id number]) Cardio Equipment Recumbent Elliptical (BiodKwaga) Duration (Minutes) 5 Resistance 1 Seat Position 6 Gym Equipment Shuttle Recovery Bilateral Squats Details Mini squats, WBing L=R x20 reps Resistance 50# Shuttle Recovery Platform Stable Therapeutic Exercises Sitting Exercises 1 Sitting Exercise Name Hamstring Curl Side right Resistance Lv 1 Equipment Used T-band Standing Exercises 4 Standing Exercise Name Flexion step stretch Side left Reps/Minutes 5 hold 3 Standing Exercise Name Hip Abduction Side bilateral Resistance Lv 2 Equipment Used T-band 2 Standing Exercise Name Hip Extension Side right Resistance Lv 2 Equipment Used T-band 1 Standing Exercise Name TKE Side right Resistance Lv 2 Equipment Used T-band Manual Therapy Treatment Joint Mobilizations 1 Joint Patella Direction Inf/Sup, Med/Lat Grade II Body Position Supine PT-OP-R Modalities Start: 01/09/20 08:31 Freq: Status: Active Protocol: Document 01/12/20 09:45 DCW (Rec: 01/12/20 10:30 DCW [id number]) Hot Pack/Cold Pack Treatment Cold Pack Location R knee Patient Position Hooklying Treatment Duration (minutes) 10 PT-OP-T Assessment and Plan Start: 01/09/20 08:31 Freq: Status: Active Protocol: Document 01/22/20 10:40 DCW (Rec: 01/22/20 11:19 DCW [id number]) Physical Therapy Assessment Impairments Impairments Activity Tolerance,Functional Activities,Functional Mobility ,Gait,Pain,ROM,Strength Goals Three Impairment Limited knee AROM flexion to 62? Short Term Goal (STG) R knee flexion AROM to 100? to improve gait on stairs STG Duration 02/08/20 Senior Living Goal (LTG) R knee AROM to 120? flexion to enable pt to properly navigate obstacles while hiking. 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 Instructed to decrease intensity of activity at home. Physical Therapy Plan Frequency and Duration Frequency of Treatment 2x/Week Duration of Treatment 10 weeks Plan of Care Start Date 01/08/20 Plan of Care End Date 03/18/20 Therapeutic Interventions Therapeutic Interventions Aquatic Therapy,Gait Training, Home Exercise Program,Joint Mobilizations,Manual Therapy, Neuromuscular Re-education, Patient/Caregiver Education, Self-Care/Home Management,Soft Tissue Mobilization, Therapeutic Exercises Modalities Cold Pack/Ice Massage,Electric Stimulation,Hot Packs, Ultrasound Next Visit Focus/Plan Next Note Type Treatment Note Next Visit Plan Assess pt tolerance to previous treatment, quad strengthening, R knee ROM, review HEP with emphasis on standing exercises with theraband.
--- NOTE | 2020-01-30 08:18 | PT.OTN ---
Current Diagnoses Stiffness of right knee, not elsewhere classified (01/30/20) Other abnormalities of gait and mobility (01/30/20) Nondisplaced comminuted fracture of right patella, initial encounter for closed fracture (01/30/20) Physical Therapy Treatment Note PT-OP-A Visit Information Start: 01/09/20 08:31 Freq: Status: Active Protocol: Document 01/30/20 07:32 SP (Rec: 01/30/20 08:18 SP [id number]) Out-Patient Physical Therapy Visit Information Visit Information Visit Type Treatment Note Visit Start Time 07:32 Visit Stop Time 08:18 Total Visit Minutes 46 Visit Number 6 Number of SPICE BLENDER Visits 1 PT-OP-B Current Condition Start: 01/09/20 08:31 Freq: Status: Active Protocol: Document 01/08/20 10:30 DCW (Rec: 01/09/20 08:47 DCW [id number]) Current Condition History of Current Condition Onset Date 12/01/19 Current Complaints R knee pain, stiffness, gait difficulty secondary to patellar fracture History of Current Condition Pt is a 54 year old female 5 weeks s/p R patella fracture suffered from falling when walking her dog. Pt has been in a knee immobilizer ever since, and uses bilateral axillary crutches for support. Per ortho consult, pt is WBAT when wearing her immobilizer, however pt entered the clinic today nonweightbearing. Pt states she prefers to not bear weight when she is on unfamiliar surfaces, but is WBAT when at home, often while using only one crutch. 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 With her background, however, she has been able to provide her own lymphatic drainage, which has greatly decreased her edema. PT-OP-C Subjective Start: 01/09/20 08:31 Freq: Status: Active Protocol: Document 01/30/20 07:32 SP (Rec: 01/30/20 08:18 SP [id number]) OP-PT Subjective Patient Comments Patient Comments I feel improving the movements worse when pivot knee turning or get up to fast . Trying to be conscious of not limping. Pt stated little sore from chirpractic appt ( Wed- sees 1x wk for c/s and SI ) and was reminded to walk slower island time for better quality of normal walking. Pt stated also noticed a pop every so often in R knee almost a release extending into R anterior medial malleolus when walking throughout the day yesterday little discomfort in the moment with feeling of blood rushing to the ankle warming up the joint as well. 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 PT-OP-F Manual Assessment Start: 01/09/20 08:31 Freq: Status: Active Protocol: Document 01/08/20 10:30 DCW (Rec: 01/09/20 11:10 DCW [id number]) Manual Assessments Soft Tissue Assessment Soft Tissue Mobility Assessment Mild edema in soft tissue surrounding knee, no notable joint effusion Joint Mobility Assessment Joint Mobility Assessment Significant limitations with knee ROM, mobility of patella, tenderness to palpation along medial joint line PT-OP-G Mobility & Gait Start: 01/09/20 08:31 Freq: Status: Active Protocol: Document 01/08/20 10:30 DCW (Rec: 01/09/20 11:10 DCW [id number]) OP Gait Assessment Gait Gait Assistance Required: Standby Assistance Distance (Feet) 190 Assistive Devices Assistive Device Axillary Crutches Gait Deviations General Gait Pattern Antalgic,Decreased Stride Length Factors Limiting Gait Function Factors Limiting Gait Function Decreased Strength,Limited Range of Motion,Pain,Poor Balance Comments Gait Comments Pt ambulated full lap around gym using unilateral axillary crutch. No indications of imbalance or safety concerns. Pt able to bear ~50% weight through leg with no difficulty while wearing immobilizer. Stair Climbing Evaluation Evaluation Level of Assist On Stairs Standby Assistance Devices Stair Climbing Assistive Devices Left Railing,Right Railing Technique/Endurance Stair Climbing Direction Ascend and Descend Stair Climbing Technique Step to Step Number of Steps Climbed 4 Comments Stair Climbing Comments Proper technique, no safety concerns, knowledgable with up with good/down with bad memory device PT-OP-K Range of Motion Start: 01/09/20 08:31 Freq: Status: Active Protocol: Document 01/08/20 10:30 DCW (Rec: 01/09/20 11:10 DCW [id number]) Knee Goniometric Range of Motion Knee Right Knee ROM WFL No Patient Position Supine Flexion Active (degrees) 62 Flexion Passive (degrees) 91 Extension Active (degrees) 0 Extension Passive (degrees) 0 Left Knee ROM WFL Yes Knee ROM Limitations Knee ROM Limitations Muscle Weakness,Muscle Tone, Pain PT-OP-L Special Tests Start: 01/09/20 11:10 Freq: Status: Active Protocol: Document 01/08/20 10:30 DCW (Rec: 01/09/20 11:12 DCW [id number]) Special Tests Knee Special Tests Varus- 0 Degrees Test Results R Medial pain along joint line , no laxity Valgus- 0 Degrees Test Results R Medial pain along joint line , no laxity Posterior Draw Test Results Negative Patella Tap Test Results Negative Tyron Test Test Results R Medial pain along joint line Anterior Draw Test Results Negative PT-OP-M Strength Start: 01/09/20 08:31 Freq: Status: Active Protocol: Document 01/08/20 10:30 DCW (Rec: 01/09/20 11:10 DCW [id number]) Knee Strength Knee Manual Muscle Testing Right Flexion (S2) 3- Fair- Extension (L3) 4 Good PT-OP-Q Treatments Start: 01/09/20 08:31 Freq: Status: Active Protocol: Document 01/30/20 07:32 SP (Rec: 01/30/20 08:18 SP [id number]) Cardio Equipment Recumbent Elliptical (Biodex) Duration (Minutes) 8 Resistance 2 Seat Position 6 Gym Equipment Shuttle Recovery Unilateral Squats Details small range, alternate BLE Resistance #25 Shuttle Recovery Platform Stable Reps/Time 2x10 Bilateral Squats Details Mini squats, WBing L=R x20 reps Resistance 50# Shuttle Recovery Platform Stable Reps/Time 2x20 Therapeutic Exercises Standing Exercises 1 Standing Exercise Name TKE Side right Resistance Lv 2 Equipment Used T-band Reps/Minutes 10 x2 Comments cued knee with mid foot alignment Gait Training Gait Activity gait quality Description forward, side stepping Device Used 0 Level of Assistance SBA Surface stable Distance/Duration 20 ft x2 laps Treatment Focus level pelvis, heel toe Comments mirror use for level pelvis and quality heel toe with self feedback for proper quality gait PT-OP-R Modalities Start: 01/09/20 08:31 Freq: Status: Active Protocol: Document 01/12/20 09:45 DCW (Rec: 01/12/20 10:30 DCW [id number]) Hot Pack/Cold Pack Treatment Cold Pack Location R knee Patient Position Hooklying Treatment Duration (minutes) 10 PT-OP-T Assessment and Plan Start: 01/09/20 08:31 Freq: Status: Active Protocol: Document 01/30/20 07:32 SP (Rec: 01/30/20 08:18 SP [id number]) Physical Therapy Assessment Goals Three Impairment Limited knee AROM flexion to 62? Short Term Goal (STG) R knee flexion AROM to 100? to improve gait on stairs STG Duration 02/08/20 Computer Systems Design Analyst Goal (LTG) R knee AROM to 120? flexion to enable pt to properly navigate obstacles while hiking. Two Impairment Pt unable to bear weight through flexed knee Assisted Goal (LTG) Pt to return to holding a semi -squat position with no pain for 20 minutes in order to return to her normal positioning during her job as a massage therapist LTG Duration 03/10/20 One Impairment Pt does not have an appropriate home exercise program Short Term Goal (STG) Pt to be independent and compliant with an appropriate HEP STG Duration 02/08/20 Assessment Summary Assessment Tx focus on quality gait: heel toe and level pelvis to decrease trendelenburg gait, improved forward/ side with mirror self feedback slow pacing and add to HEP. Physical Therapy Plan Frequency and Duration Frequency of Treatment 2x/Week Duration of Treatment 10 weeks Plan of Care Start Date 01/08/20 Plan of Care End Date 03/18/20 Therapeutic Interventions Therapeutic Interventions Aquatic Therapy,Gait Training, Home Exercise Program,Joint Mobilizations,Manual Therapy, Neuromuscular Re-education, Patient/Caregiver Education, Self-Care/Home Management,Soft Tissue Mobilization, Therapeutic Exercises Modalities Cold Pack/Ice Massage,Electric Stimulation,Hot Packs, Ultrasound Next Visit Focus/Plan Next Note Type Treatment Note Next Visit Plan Assess pt tolerance to previous treatment: added gait forward/ side stepping AROM, next tx assess adding TB loop and eccentric step down wiht 2 step to improved ROM and strength for ascend stairs. Continue per PT POC: quad strengthening, R knee ROM , review HEP with emphasis on standing exercises with theraband.
--- NOTE | 2020-02-04 17:39 | PT.OTN ---
Current Diagnoses Stiffness of right knee, not elsewhere classified (02/04/20) Other abnormalities of gait and mobility (02/04/20) Nondisplaced comminuted fracture of right patella, initial encounter for closed fracture (02/04/20) Physical Therapy Treatment Note PT-OP-A Visit Information Start: 01/09/20 08:31 Freq: Status: Active Protocol: Document 02/04/20 16:45 DCW (Rec: 02/04/20 17:39 DCW [id number]) Out-Patient Physical Therapy Visit Information Visit Information Visit Type Treatment Note Visit Start Time 16:45 Visit Stop Time 17:30 Total Visit Minutes 45 Visit Number 7 Number of RETAIL SALES SPECIALIST Visits 0 PT-OP-B Current Condition Start: 01/09/20 08:31 Freq: Status: Active Protocol: Document 01/08/20 10:30 DCW (Rec: 01/09/20 08:47 DCW [id number]) Current Condition History of Current Condition Onset Date 12/01/19 Current Complaints R knee pain, stiffness, gait difficulty secondary to patellar fracture History of Current Condition Pt is a 54 year old female 5 weeks s/p R patella fracture suffered from falling when walking her dog. Pt has been in a knee immobilizer ever since, and uses bilateral axillary crutches for support. Per ortho consult, pt is WBAT when wearing her immobilizer, however pt entered the clinic today nonweightbearing. Pt states she prefers to not bear weight when she is on unfamiliar surfaces, but is WBAT when at home, often while using only one crutch. 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 With her background, however, she has been able to provide her own lymphatic drainage, which has greatly decreased her edema. PT-OP-C Subjective Start: 01/09/20 08:31 Freq: Status: Active Protocol: Document 02/04/20 16:45 DCW (Rec: 02/04/20 17:39 DCW [id number]) OP-PT Subjective Patient Comments Patient Comments The knee has been better, but it has been cranky in different places, especially that medial ligament. PT-OP-F Manual Assessment Start: 01/09/20 08:31 Freq: Status: Active Protocol: Document 01/08/20 10:30 DCW (Rec: 01/09/20 11:10 DCW [id number]) Manual Assessments Soft Tissue Assessment Soft Tissue Mobility Assessment Mild edema in soft tissue surrounding knee, no notable joint effusion Joint Mobility Assessment Joint Mobility Assessment Significant limitations with knee ROM, mobility of patella, tenderness to palpation along medial joint line PT-OP-G Mobility & Gait Start: 01/09/20 08:31 Freq: Status: Active Protocol: Document 01/08/20 10:30 DCW (Rec: 01/09/20 11:10 DCW [id number]) OP Gait Assessment Gait Gait Assistance Required: Standby Assistance Distance (Feet) 190 Assistive Devices Assistive Device Axillary Crutches Gait Deviations General Gait Pattern Antalgic,Decreased Stride Length Factors Limiting Gait Function Factors Limiting Gait Function Decreased Strength,Limited Range of Motion,Pain,Poor Balance Comments Gait Comments Pt ambulated full lap around gym using unilateral axillary crutch. No indications of imbalance or safety concerns. Pt able to bear ~50% weight through leg with no difficulty while wearing immobilizer. Stair Climbing Evaluation Evaluation Level of Assist On Stairs Standby Assistance Devices Stair Climbing Assistive Devices Left Railing,Right Railing Technique/Endurance Stair Climbing Direction Ascend and Descend Stair Climbing Technique Step to Step Number of Steps Climbed 4 Comments Stair Climbing Comments Proper technique, no safety concerns, knowledgable with up with good/down with bad memory device PT-OP-K Range of Motion Start: 01/09/20 08:31 Freq: Status: Active Protocol: Document 01/08/20 10:30 DCW (Rec: 01/09/20 11:10 DCW [id number]) Knee Goniometric Range of Motion Knee Right Knee ROM WFL No Patient Position Supine Flexion Active (degrees) 62 Flexion Passive (degrees) 91 Extension Active (degrees) 0 Extension Passive (degrees) 0 Left Knee ROM WFL Yes Knee ROM Limitations Knee ROM Limitations Muscle Weakness,Muscle Tone, Pain PT-OP-L Special Tests Start: 01/09/20 11:10 Freq: Status: Active Protocol: Document 01/08/20 10:30 DCW (Rec: 01/09/20 11:12 DCW [id number]) Special Tests Knee Special Tests Varus- 0 Degrees Test Results R Medial pain along joint line , no laxity Valgus- 0 Degrees Test Results R Medial pain along joint line , no laxity Posterior Draw Test Results Negative Patella Tap Test Results Negative Tyron Test Test Results R Medial pain along joint line Anterior Draw Test Results Negative PT-OP-M Strength Start: 01/09/20 08:31 Freq: Status: Active Protocol: Document 01/08/20 10:30 DCW (Rec: 01/09/20 11:10 DCW [id number]) Knee Strength Knee Manual Muscle Testing Right Flexion (S2) 3- Fair- Extension (L3) 4 Good PT-OP-Q Treatments Start: 01/09/20 08:31 Freq: Status: Active Protocol: Document 02/04/20 16:45 DCW (Rec: 02/04/20 17:39 DCW [id number]) Cardio Equipment Recumbent Bicycle Duration (Minutes) 5 Resistance 1 Seat Position 3 Gait Training Gait Activity stairs Description ascend/descend stairs Device Used B rails Surface 6, 4 steps Comments Pt has medial rotation/medial fall in of right knee during descent gait quality Description forward, side stepping Device Used none Level of Assistance SBA Surface stable Distance/Duration 20 ft x2 laps Treatment Focus level pelvis, heel toe Comments work on decreasing ER of R foot during push-off/swing Manual Therapy Treatment Joint Mobilizations 2 Joint Knee Direction P->A Grade III Body Position Hooklying 1 Joint Patella Direction Inf/Sup, Med/Lat Grade II Body Position Supine PT-OP-R Modalities Start: 01/09/20 08:31 Freq: Status: Active Protocol: Document 01/12/20 09:45 DCW (Rec: 01/12/20 10:30 DCW [id number]) Hot Pack/Cold Pack Treatment Cold Pack Location R knee Patient Position Hooklying Treatment Duration (minutes) 10 PT-OP-T Assessment and Plan Start: 01/09/20 08:31 Freq: Status: Active Protocol: Document 02/04/20 16:45 DCW (Rec: 02/04/20 17:39 DCW [id number]) Physical Therapy Assessment Impairments Impairments Activity Tolerance,Functional Activities,Functional Mobility ,Gait,Pain,ROM,Strength Goals Three Impairment Limited knee AROM flexion to 62? Short Term Goal (STG) R knee flexion AROM to 100? to improve gait on stairs STG Duration 02/08/20 Alf Goal (LTG) R knee AROM to 120? flexion to enable pt to properly navigate obstacles while hiking. 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 Pt able to self -correct gait deficits when informed of them. Physical Therapy Plan Frequency and Duration Frequency of Treatment 2x/Week Duration of Treatment 10 weeks Plan of Care Start Date 01/08/20 Plan of Care End Date 03/18/20 Therapeutic Interventions Therapeutic Interventions Aquatic Therapy,Gait Training, Home Exercise Program,Joint Mobilizations,Manual Therapy, Neuromuscular Re-education, Patient/Caregiver Education, Self-Care/Home Management,Soft Tissue Mobilization, Therapeutic Exercises Modalities Cold Pack/Ice Massage,Electric Stimulation,Hot Packs, Ultrasound Next Visit Focus/Plan Next Note Type Treatment Note Next Visit Plan Assess pt tolerance to previous treatment: added gait forward/ side stepping AROM, next tx assess adding TB loop and eccentric step down wiht 2 step to improved ROM and strength for ascend stairs. Continue per PT POC: quad strengthening, R knee ROM , review HEP with emphasis on standing exercises with theraband.
--- NOTE | 2020-02-06 12:44 | PT.OTN ---
Current Diagnoses Stiffness of right knee, not elsewhere classified (02/06/20) Other abnormalities of gait and mobility (02/06/20) Nondisplaced comminuted fracture of right patella, initial encounter for closed fracture (02/06/20) Physical Therapy Treatment Note PT-OP-A Visit Information Start: 01/09/20 08:31 Freq: Status: Active Protocol: Document 02/06/20 12:00 DCW (Rec: 02/06/20 12:44 DCW [id number]) Out-Patient Physical Therapy Visit Information Visit Information Visit Type Treatment Note Visit Start Time 12:00 Visit Stop Time 12:45 Total Visit Minutes 45 Visit Number 8 Number of HAND REAMER Visits 0 Evaluation Information Evaluation Date 01/08/20 PT-OP-B Current Condition Start: 01/09/20 08:31 Freq: Status: Active Protocol: Document 01/08/20 10:30 DCW (Rec: 01/09/20 08:47 DCW [id number]) Current Condition History of Current Condition Onset Date 12/01/19 Current Complaints R knee pain, stiffness, gait difficulty secondary to patellar fracture History of Current Condition Pt is a 54 year old female 5 weeks s/p R patella fracture suffered from falling when walking her dog. Pt has been in a knee immobilizer ever since, and uses bilateral axillary crutches for support. Per ortho consult, pt is WBAT when wearing her immobilizer, however pt entered the clinic today nonweightbearing. Pt states she prefers to not bear weight when she is on unfamiliar surfaces, but is WBAT when at home, often while using only one crutch. 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 With her background, however, she has been able to provide her own lymphatic drainage, which has greatly decreased her edema. PT-OP-C Subjective Start: 01/09/20 08:31 Freq: Status: Active Protocol: Document 02/06/20 12:00 DCW (Rec: 02/06/20 12:44 DCW [id number]) OP-PT Subjective Patient Comments Patient Comments Pt reports her knee feels about the same, but she is excited to be going on a weekend trip with her daughter . PT-OP-F Manual Assessment Start: 01/09/20 08:31 Freq: Status: Active Protocol: Document 01/08/20 10:30 DCW (Rec: 01/09/20 11:10 DCW [id number]) Manual Assessments Soft Tissue Assessment Soft Tissue Mobility Assessment Mild edema in soft tissue surrounding knee, no notable joint effusion Joint Mobility Assessment Joint Mobility Assessment Significant limitations with knee ROM, mobility of patella, tenderness to palpation along medial joint line PT-OP-G Mobility & Gait Start: 01/09/20 08:31 Freq: Status: Active Protocol: Document 01/08/20 10:30 DCW (Rec: 01/09/20 11:10 DCW [id number]) OP Gait Assessment Gait Gait Assistance Required: Standby Assistance Distance (Feet) 190 Assistive Devices Assistive Device Axillary Crutches Gait Deviations General Gait Pattern Antalgic,Decreased Stride Length Factors Limiting Gait Function Factors Limiting Gait Function Decreased Strength,Limited Range of Motion,Pain,Poor Balance Comments Gait Comments Pt ambulated full lap around gym using unilateral axillary crutch. No indications of imbalance or safety concerns. Pt able to bear ~50% weight through leg with no difficulty while wearing immobilizer. Stair Climbing Evaluation Evaluation Level of Assist On Stairs Standby Assistance Devices Stair Climbing Assistive Devices Left Railing,Right Railing Technique/Endurance Stair Climbing Direction Ascend and Descend Stair Climbing Technique Step to Step Number of Steps Climbed 4 Comments Stair Climbing Comments Proper technique, no safety concerns, knowledgable with up with good/down with bad memory device PT-OP-K Range of Motion Start: 01/09/20 08:31 Freq: Status: Active Protocol: Document 01/08/20 10:30 DCW (Rec: 01/09/20 11:10 DCW [id number]) Knee Goniometric Range of Motion Knee Right Knee ROM WFL No Patient Position Supine Flexion Active (degrees) 62 Flexion Passive (degrees) 91 Extension Active (degrees) 0 Extension Passive (degrees) 0 Left Knee ROM WFL Yes Knee ROM Limitations Knee ROM Limitations Muscle Weakness,Muscle Tone, Pain PT-OP-L Special Tests Start: 01/09/20 11:10 Freq: Status: Active Protocol: Document 01/08/20 10:30 DCW (Rec: 01/09/20 11:12 DCW [id number]) Special Tests Knee Special Tests Varus- 0 Degrees Test Results R Medial pain along joint line , no laxity Valgus- 0 Degrees Test Results R Medial pain along joint line , no laxity Posterior Draw Test Results Negative Patella Tap Test Results Negative Tyron Test Test Results R Medial pain along joint line Anterior Draw Test Results Negative PT-OP-M Strength Start: 01/09/20 08:31 Freq: Status: Active Protocol: Document 01/08/20 10:30 DCW (Rec: 01/09/20 11:10 DCW [id number]) Knee Strength Knee Manual Muscle Testing Right Flexion (S2) 3- Fair- Extension (L3) 4 Good PT-OP-Q Treatments Start: 01/09/20 08:31 Freq: Status: Active Protocol: Document 02/06/20 12:00 DCW (Rec: 02/06/20 12:44 DCW [id number]) Cardio Equipment Recumbent Bicycle Duration (Minutes) 5 Resistance 2 Seat Position 3 Gym Equipment Shuttle Recovery Unilateral Squats Details small range, alternate BLE Resistance 37# Shuttle Recovery Platform Stable Reps/Time 2x10 Bilateral Squats Details Mini squats, WBing L=R x20 reps Resistance 75# Shuttle Recovery Platform Stable Reps/Time 2x20 Therapeutic Exercises Standing Exercises 2 Standing Exercise Name Lunge onto step Comments Focus on knee stability, limit flexion to 90 Other Exercises 1 Other Exercise Name Resisted Ambulation Resistance Green Equipment Used T-band Comments Lateral, Fwd, Bkwd Manual Therapy Treatment Joint Mobilizations 2 Joint Knee Direction P->A Grade III Body Position Hooklying 1 Joint Patella Direction Inf/Sup, Med/Lat Grade II Body Position Supine PT-OP-R Modalities Start: 01/09/20 08:31 Freq: Status: Active Protocol: Document 01/12/20 09:45 DCW (Rec: 01/12/20 10:30 DCW [id number]) Hot Pack/Cold Pack Treatment Cold Pack Location R knee Patient Position Hooklying Treatment Duration (minutes) 10 PT-OP-T Assessment and Plan Start: 01/09/20 08:31 Freq: Status: Active Protocol: Document 02/06/20 12:00 DCW (Rec: 02/06/20 12:44 DCW [id number]) Physical Therapy Assessment Impairments Impairments Activity Tolerance,Functional Activities,Functional Mobility ,Gait,Pain,ROM,Strength Goals Three Impairment Limited knee AROM flexion to 62? Short Term Goal (STG) R knee flexion AROM to 100? to improve gait on stairs STG Duration 02/08/20 Penitentiary Goal (LTG) R knee AROM to 120? flexion to enable pt to properly navigate obstacles while hiking. Two Impairment Pt unable to bear weight through flexed knee Dietary Aide Cook Goal (LTG) Pt to return to holding a semi -squat position with no pain for 20 minutes in order to return to her normal positioning during her job as a massage therapist LTG Duration 03/10/20 One Impairment Pt does not have an appropriate home exercise program Short Term Goal (STG) Pt to be independent and compliant with an appropriate HEP STG Duration 02/08/20 Assessment Summary Assessment Pt continues to make good improvement, increased ROM and stability with exercise. Physical Therapy Plan Frequency and Duration Frequency of Treatment 2x/Week Duration of Treatment 10 weeks Plan of Care Start Date 01/08/20 Plan of Care End Date 03/18/20 Therapeutic Interventions Therapeutic Interventions Aquatic Therapy,Gait Training, Home Exercise Program,Joint Mobilizations,Manual Therapy, Neuromuscular Re-education, Patient/Caregiver Education, Self-Care/Home Management,Soft Tissue Mobilization, Therapeutic Exercises Modalities Cold Pack/Ice Massage,Electric Stimulation,Hot Packs, Ultrasound Next Visit Focus/Plan Next Note Type Treatment Note Next Visit Plan Assess pt tolerance to previous treatment: added gait forward/ side stepping AROM, next tx assess adding TB loop and eccentric step down wiht 2 step to improved ROM and strength for ascend stairs. Continue per PT POC: quad strengthening, R knee ROM , review HEP with emphasis on standing exercises with theraband.
--- NOTE | 2020-02-13 15:17 | PT.OTN ---
Current Diagnoses Stiffness of right knee, not elsewhere classified (02/13/20) Other abnormalities of gait and mobility (02/13/20) Nondisplaced comminuted fracture of right patella, initial encounter for closed fracture (02/13/20) Physical Therapy Treatment Note PT-OP-A Visit Information Start: 01/09/20 08:31 Freq: Status: Active Protocol: Document 02/13/20 14:34 TP (Rec: 02/13/20 16:07 TP [id number]) Out-Patient Physical Therapy Visit Information Visit Information Visit Type Treatment Note Visit Note Student DESIREE Tolentino supervised by DESIREE Cruz. Visit Start Time 14:34 Visit Stop Time 15:17 Total Visit Minutes 43 Visit Number 9 Number of FIXED INCOME MANAGER Visits 1 PT-OP-B Current Condition Start: 01/09/20 08:31 Freq: Status: Active Protocol: Document 01/08/20 10:30 DCW (Rec: 01/09/20 08:47 DCW [id number]) Current Condition History of Current Condition Onset Date 12/01/19 Current Complaints R knee pain, stiffness, gait difficulty secondary to patellar fracture History of Current Condition Pt is a 54 year old female 5 weeks s/p R patella fracture suffered from falling when walking her dog. Pt has been in a knee immobilizer ever since, and uses bilateral axillary crutches for support. Per ortho consult, pt is WBAT when wearing her immobilizer, however pt entered the clinic today nonweightbearing. Pt states she prefers to not bear weight when she is on unfamiliar surfaces, but is WBAT when at home, often while using only one crutch. 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 With her background, however, she has been able to provide her own lymphatic drainage, which has greatly decreased her edema. PT-OP-C Subjective Start: 01/09/20 08:31 Freq: Status: Active Protocol: Document 02/13/20 14:34 TP (Rec: 02/13/20 16:07 TP [id number]) OP-PT Subjective Patient Comments Patient Comments More conscious of stabilizing movement without wearing brace . Puts on compression sleeve when fatigued. PT-OP-F Manual Assessment Start: 01/09/20 08:31 Freq: Status: Active Protocol: Document 01/08/20 10:30 DCW (Rec: 01/09/20 11:10 DCW [id number]) Manual Assessments Soft Tissue Assessment Soft Tissue Mobility Assessment Mild edema in soft tissue surrounding knee, no notable joint effusion Joint Mobility Assessment Joint Mobility Assessment Significant limitations with knee ROM, mobility of patella, tenderness to palpation along medial joint line PT-OP-G Mobility & Gait Start: 01/09/20 08:31 Freq: Status: Active Protocol: Document 01/08/20 10:30 DCW (Rec: 01/09/20 11:10 DCW [id number]) OP Gait Assessment Gait Gait Assistance Required: Standby Assistance Distance (Feet) 190 Assistive Devices Assistive Device Axillary Crutches Gait Deviations General Gait Pattern Antalgic,Decreased Stride Length Factors Limiting Gait Function Factors Limiting Gait Function Decreased Strength,Limited Range of Motion,Pain,Poor Balance Comments Gait Comments Pt ambulated full lap around gym using unilateral axillary crutch. No indications of imbalance or safety concerns. Pt able to bear ~50% weight through leg with no difficulty while wearing immobilizer. Stair Climbing Evaluation Evaluation Level of Assist On Stairs Standby Assistance Devices Stair Climbing Assistive Devices Left Railing,Right Railing Technique/Endurance Stair Climbing Direction Ascend and Descend Stair Climbing Technique Step to Step Number of Steps Climbed 4 Comments Stair Climbing Comments Proper technique, no safety concerns, knowledgable with up with good/down with bad memory device PT-OP-K Range of Motion Start: 01/09/20 08:31 Freq: Status: Active Protocol: Document 01/08/20 10:30 DCW (Rec: 01/09/20 11:10 DCW [id number]) Knee Goniometric Range of Motion Knee Right Knee ROM WFL No Patient Position Supine Flexion Active (degrees) 62 Flexion Passive (degrees) 91 Extension Active (degrees) 0 Extension Passive (degrees) 0 Left Knee ROM WFL Yes Knee ROM Limitations Knee ROM Limitations Muscle Weakness,Muscle Tone, Pain PT-OP-L Special Tests Start: 01/09/20 11:10 Freq: Status: Active Protocol: Document 01/08/20 10:30 DCW (Rec: 01/09/20 11:12 DCW [id number]) Special Tests Knee Special Tests Varus- 0 Degrees Test Results R Medial pain along joint line , no laxity Valgus- 0 Degrees Test Results R Medial pain along joint line , no laxity Posterior Draw Test Results Negative Patella Tap Test Results Negative Tyron Test Test Results R Medial pain along joint line Anterior Draw Test Results Negative PT-OP-M Strength Start: 01/09/20 08:31 Freq: Status: Active Protocol: Document 01/08/20 10:30 DCW (Rec: 01/09/20 11:10 DCW [id number]) Knee Strength Knee Manual Muscle Testing Right Flexion (S2) 3- Fair- Extension (L3) 4 Good PT-OP-Q Treatments Start: 01/09/20 08:31 Freq: Status: Active Protocol: Document 02/13/20 14:34 TP (Rec: 02/13/20 16:07 TP [id number]) Cardio Equipment Recumbent Elliptical (Biodex) Duration (Minutes) 5 Resistance 4 Seat Position 3 Therapeutic Exercises Standing Exercises sit to stand Standing Exercise Name sit to stand, arms crossed Side bilateral Equipment Used chair Reps/Minutes 10x Comments cues for sitting on edge of chair, feet back, lean forward step down Standing Exercise Name step down Side bilateral Equipment Used 2 step, 4 step, mirror Reps/Minutes 10x3 each height Comments cues for glute facilitation, hip hinge decrease pat tendon recruit Manual Therapy Treatment Soft Tissue Mobilization patellar tendon Mobilization Type Cross-Friction,Myofascial Release Intensity/Depth Moderate Body Position Sitting Comments knee extension on biodex Joint Mobilizations 1 Joint Patella Direction Inf/Sup, Med/Lat Grade II Body Position Sitting Comments knee extension on biodex PT-OP-R Modalities Start: 01/09/20 08:31 Freq: Status: Active Protocol: Document 01/12/20 09:45 DCW (Rec: 01/12/20 10:30 DCW [id number]) Hot Pack/Cold Pack Treatment Cold Pack Location R knee Patient Position Hooklying Treatment Duration (minutes) 10 PT-OP-T Assessment and Plan Start: 01/09/20 08:31 Freq: Status: Active Protocol: Document 02/13/20 14:34 TP (Rec: 02/13/20 16:07 TP [id number]) Physical Therapy Assessment Goals Three Impairment Limited knee AROM flexion to 62? Short Term Goal (STG) R knee flexion AROM to 100? to improve gait on stairs STG Duration 8/9/20 Polymerization Engineer Goal (LTG) R knee AROM to 120? flexion to enable pt to properly navigate obstacles while hiking. 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 Patellar and soft tisssue mobilizations decreased pain symptoms. Education for pillow support side-sleeping. Pt experiencing pain and instability with descent on stairs and during sit to stand , with poor ability for eccentric control of quad. B step downs used to increase glute facilitation during step down and sit to stand. Education for good posture and body mechanics during work as massage therapist. Continue PT for strength and endurace of R LE for safe mobilization and return to PLOF. Physical Therapy Plan Frequency and Duration Frequency of Treatment 2x/Week Duration of Treatment 10 weeks Plan of Care Start Date 01/08/20 Plan of Care End Date 03/18/20 Therapeutic Interventions Therapeutic Interventions Aquatic Therapy,Gait Training, Home Exercise Program,Joint Mobilizations,Manual Therapy, Neuromuscular Re-education, Patient/Caregiver Education, Self-Care/Home Management,Soft Tissue Mobilization, Therapeutic Exercises Modalities Cold Pack/Ice Massage,Electric Stimulation,Hot Packs, Ultrasound Next Visit Focus/Plan Next Note Type Treatment Note Next Visit Plan Assess pt tolerance to previous treatment: added step down, sit to stand, door squat. Continue per PT POC: quad strengthening, R knee ROM , review HEP with emphasis on standing exercises with theraband. Dynamic balance as tolerated.
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
--- NOTE | 2020-02-26 17:13 | PT.OTN ---
Current Diagnoses Stiffness of right knee, not elsewhere classified (02/26/20) Other abnormalities of gait and mobility (02/26/20) Nondisplaced comminuted fracture of right patella, initial encounter for closed fracture (02/26/20) Physical Therapy Treatment Note PT-OP-A Visit Information Start: 01/09/20 08:31 Freq: Status: Active Protocol: Document 02/26/20 13:08 [facility] (Rec: 02/26/20 13:17 AMH [id number]) Out-Patient Physical Therapy Visit Information Visit Information Visit Type Treatment Note Visit Start Time 13:10 Visit Stop Time 13:45 Total Visit Minutes 35 Visit Number 12 Number of COMMAND AND CONTROL OFFICER Visits 0 PT-OP-B Current Condition Start: 01/09/20 08:31 Freq: Status: Active Protocol: Document 01/08/20 10:30 DCW (Rec: 01/09/20 08:47 DCW [id number]) Current Condition History of Current Condition Onset Date 12/01/19 Current Complaints R knee pain, stiffness, gait difficulty secondary to patellar fracture History of Current Condition Pt is a 54 year old female 5 weeks s/p R patella fracture suffered from falling when walking her dog. Pt has been in a knee immobilizer ever since, and uses bilateral axillary crutches for support. Per ortho consult, pt is WBAT when wearing her immobilizer, however pt entered the clinic today nonweightbearing. Pt states she prefers to not bear weight when she is on unfamiliar surfaces, but is WBAT when at home, often while using only one crutch. 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 With her background, however, she has been able to provide her own lymphatic drainage, which has greatly decreased her edema. PT-OP-C Subjective Start: 01/09/20 08:31 Freq: Status: Active Protocol: Document 02/26/20 13:08 AM[facility] (Rec: 02/26/20 13:17 AMH [id number]) OP-PT Subjective Patient Comments Patient Comments patient describes pain that is pretty constant at the distal patella. She did a standing squat yesterday and she could feel pain in the distal patella. Going down stairs is still difficult. She can tell she is improving overall though. Patient Reported Progress Improving PT-OP-F Manual Assessment Start: 01/09/20 08:31 Freq: Status: Active Protocol: Document 01/08/20 10:30 DCW (Rec: 01/09/20 11:10 DCW [id number]) Manual Assessments Soft Tissue Assessment Soft Tissue Mobility Assessment Mild edema in soft tissue surrounding knee, no notable joint effusion Joint Mobility Assessment Joint Mobility Assessment Significant limitations with knee ROM, mobility of patella, tenderness to palpation along medial joint line PT-OP-G Mobility & Gait Start: 01/09/20 08:31 Freq: Status: Active Protocol: Document 01/08/20 10:30 DCW (Rec: 01/09/20 11:10 DCW [id number]) OP Gait Assessment Gait Gait Assistance Required: Standby Assistance Distance (Feet) 190 Assistive Devices Assistive Device Axillary Crutches Gait Deviations General Gait Pattern Antalgic,Decreased Stride Length Factors Limiting Gait Function Factors Limiting Gait Function Decreased Strength,Limited Range of Motion,Pain,Poor Balance Comments Gait Comments Pt ambulated full lap around gym using unilateral axillary crutch. No indications of imbalance or safety concerns. Pt able to bear ~50% weight through leg with no difficulty while wearing immobilizer. Stair Climbing Evaluation Evaluation Level of Assist On Stairs Standby Assistance Devices Stair Climbing Assistive Devices Left Railing,Right Railing Technique/Endurance Stair Climbing Direction Ascend and Descend Stair Climbing Technique Step to Step Number of Steps Climbed 4 Comments Stair Climbing Comments Proper technique, no safety concerns, knowledgable with up with good/down with bad memory device PT-OP-K Range of Motion Start: 01/09/20 08:31 Freq: Status: Active Protocol: Document 01/08/20 10:30 DCW (Rec: 01/09/20 11:10 DCW [id number]) Knee Goniometric Range of Motion Knee Right Knee ROM WFL No Patient Position Supine Flexion Active (degrees) 62 Flexion Passive (degrees) 91 Extension Active (degrees) 0 Extension Passive (degrees) 0 Left Knee ROM WFL Yes Knee ROM Limitations Knee ROM Limitations Muscle Weakness,Muscle Tone, Pain PT-OP-L Special Tests Start: 01/09/20 11:10 Freq: Status: Active Protocol: Document 01/08/20 10:30 DCW (Rec: 01/09/20 11:12 DCW [id number]) Special Tests Knee Special Tests Varus- 0 Degrees Test Results R Medial pain along joint line , no laxity Valgus- 0 Degrees Test Results R Medial pain along joint line , no laxity Posterior Draw Test Results Negative Patella Tap Test Results Negative Tyron Test Test Results R Medial pain along joint line Anterior Draw Test Results Negative PT-OP-M Strength Start: 01/09/20 08:31 Freq: Status: Active Protocol: Document 01/08/20 10:30 DCW (Rec: 01/09/20 11:10 DCW [id number]) Knee Strength Knee Manual Muscle Testing Right Flexion (S2) 3- Fair- Extension (L3) 4 Good PT-OP-Q Treatments Start: 01/09/20 08:31 Freq: Status: Active Protocol: Document 02/26/20 13:08 AMH (Rec: 02/26/20 13:17 AMH [id number]) Cardio Equipment Recumbent Elliptical (Biodex) Duration (Minutes) 5 Resistance 4 Seat Position 3 Gym Equipment Shuttle Recovery Bilateral Squats Resistance 75# Shuttle Recovery Platform Stable Reps/Time 2x20 Therapeutic Exercises Supine Exercises ITB STRETCH with strap Reps/Minutes 2 reps 30 seconds each hip abd Supine Exercise Name hip abd with ER Side right Reps/Minutes x20 2 Supine Exercise Name SAQ, cream bolster [id number] Side right Sidelying Exercises sidelying clam shells Reps/Minutes 2 x 10 reps Sitting Exercises 1 Sitting Exercise Name Hamstring Curl Side right Resistance Lv 1 Equipment Used T-band Standing Exercises sit to stand Standing Exercise Name sit to stand, arms crossed Side bilateral Equipment Used chair Reps/Minutes 10x Comments cues for sitting on edge of chair, feet back, lean forward Other Exercises 1 Other Exercise Name Resisted Ambulation Resistance Green Equipment Used T-band Comments Lateral, Fwd, Bkwd Manual Therapy Treatment Soft Tissue Mobilization quadriceps Comments MFR over the right quadriceps and manual quad stretching patellar tendon Mobilization Type Cross-Friction,Myofascial Release Intensity/Depth Moderate Body Position Sitting Comments knee extension on biodex Joint Mobilizations 1 Joint Patella Direction Inf/Sup, Med/Lat Grade II Body Position Sitting Comments knee extension on biodex PT-OP-R Modalities Start: 01/09/20 08:31 Freq: Status: Active Protocol: Document 01/12/20 09:45 DCW (Rec: 01/12/20 10:30 DCW [id number]) Hot Pack/Cold Pack Treatment Cold Pack Location R knee Patient Position Hooklying Treatment Duration (minutes) 10 PT-OP-T Assessment and Plan Start: 01/09/20 08:31 Freq: Status: Active Protocol: Document 02/26/20 17:11 AMH (Rec: 02/26/20 17:13 AMH [id number]) Physical Therapy Assessment Assessment Summary Assessment going down stairs and squatting still a challange. We didn't get through al exercises due to shortened appointment time today. Pt notes she continues to make improvements Physical Therapy Plan Frequency and Duration Frequency of Treatment 2x/Week Duration of Treatment 10 weeks Plan of Care Start Date 01/08/20 Plan of Care End Date 03/18/20 Therapeutic Interventions Therapeutic Interventions Aquatic Therapy,Gait Training, Home Exercise Program,Joint Mobilizations,Manual Therapy, Neuromuscular Re-education, Patient/Caregiver Education, Self-Care/Home Management,Soft Tissue Mobilization, Therapeutic Exercises Modalities Cold Pack/Ice Massage,Electric Stimulation,Hot Packs, Ultrasound Next Visit Focus/Plan Next Note Type Treatment Note Next Visit Plan Assess pt tolerance to previous treatment: Continue per PT POC: quad strengthening, R knee ROM , review HEP with emphasis on standing exercises with theraband. Dynamic balance as tolerated.
--- NOTE | 2020-03-01 08:20 | PT.OTN ---
Current Diagnoses Stiffness of right knee, not elsewhere classified (03/01/20) Other abnormalities of gait and mobility (03/01/20) Nondisplaced comminuted fracture of right patella, initial encounter for closed fracture (03/01/20) Physical Therapy Treatment Note PT-OP-A Visit Information Start: 01/09/20 08:31 Freq: Status: Active Protocol: Document 03/01/20 07:32 SP (Rec: 03/01/20 08:16 SP [id number]) Out-Patient Physical Therapy Visit Information Visit Information Visit Type Treatment Note Visit Start Time 07:32 Visit Stop Time 08:20 Total Visit Minutes 48 Visit Number 13 Number of HEAD WAITER/WAITRESS BANQUET Visits 1 PT-OP-B Current Condition Start: 01/09/20 08:31 Freq: Status: Active Protocol: Document 01/08/20 10:30 DCW (Rec: 01/09/20 08:47 DCW [id number]) Current Condition History of Current Condition Onset Date 12/01/19 Current Complaints R knee pain, stiffness, gait difficulty secondary to patellar fracture History of Current Condition Pt is a 54 year old female 5 weeks s/p R patella fracture suffered from falling when walking her dog. Pt has been in a knee immobilizer ever since, and uses bilateral axillary crutches for support. Per ortho consult, pt is WBAT when wearing her immobilizer, however pt entered the clinic today nonweightbearing. Pt states she prefers to not bear weight when she is on unfamiliar surfaces, but is WBAT when at home, often while using only one crutch. 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 With her background, however, she has been able to provide her own lymphatic drainage, which has greatly decreased her edema. PT-OP-C Subjective Start: 01/09/20 08:31 Freq: Status: Active Protocol: Document 03/01/20 07:32 SP (Rec: 03/01/20 08:16 SP [id number]) OP-PT Subjective Patient Comments Patient Comments Pt stated has done occasional walking and stretching when needed to help stiffness this past weekend, standing/ sitting extended periods of time lately prepare [facility] coming up this coming weekend. Will be focused on HEP soon and self progression in strength. Pt reported last tx felt good with the strengthening. Pt stated is still really fearful of falling when out walking, walked the dog this weekend short walk approx 60 # and did well but nervous will hurt her knee. PT-OP-F Manual Assessment Start: 01/09/20 08:31 Freq: Status: Active Protocol: Document 01/08/20 10:30 DCW (Rec: 01/09/20 11:10 DCW [id number]) Manual Assessments Soft Tissue Assessment Soft Tissue Mobility Assessment Mild edema in soft tissue surrounding knee, no notable joint effusion Joint Mobility Assessment Joint Mobility Assessment Significant limitations with knee ROM, mobility of patella, tenderness to palpation along medial joint line PT-OP-G Mobility & Gait Start: 01/09/20 08:31 Freq: Status: Active Protocol: Document 01/08/20 10:30 DCW (Rec: 01/09/20 11:10 DCW [id number]) OP Gait Assessment Gait Gait Assistance Required: Standby Assistance Distance (Feet) 190 Assistive Devices Assistive Device Axillary Crutches Gait Deviations General Gait Pattern Antalgic,Decreased Stride Length Factors Limiting Gait Function Factors Limiting Gait Function Decreased Strength,Limited Range of Motion,Pain,Poor Balance Comments Gait Comments Pt ambulated full lap around gym using unilateral axillary crutch. No indications of imbalance or safety concerns. Pt able to bear ~50% weight through leg with no difficulty while wearing immobilizer. Stair Climbing Evaluation Evaluation Level of Assist On Stairs Standby Assistance Devices Stair Climbing Assistive Devices Left Railing,Right Railing Technique/Endurance Stair Climbing Direction Ascend and Descend Stair Climbing Technique Step to Step Number of Steps Climbed 4 Comments Stair Climbing Comments Proper technique, no safety concerns, knowledgable with up with good/down with bad memory device PT-OP-K Range of Motion Start: 01/09/20 08:31 Freq: Status: Active Protocol: Document 01/08/20 10:30 DCW (Rec: 01/09/20 11:10 DCW [id number]) Knee Goniometric Range of Motion Knee Right Knee ROM WFL No Patient Position Supine Flexion Active (degrees) 62 Flexion Passive (degrees) 91 Extension Active (degrees) 0 Extension Passive (degrees) 0 Left Knee ROM WFL Yes Knee ROM Limitations Knee ROM Limitations Muscle Weakness,Muscle Tone, Pain PT-OP-L Special Tests Start: 01/09/20 11:10 Freq: Status: Active Protocol: Document 01/08/20 10:30 DCW (Rec: 01/09/20 11:12 DCW [id number]) Special Tests Knee Special Tests Varus- 0 Degrees Test Results R Medial pain along joint line , no laxity Valgus- 0 Degrees Test Results R Medial pain along joint line , no laxity Posterior Draw Test Results Negative Patella Tap Test Results Negative Tyron Test Test Results R Medial pain along joint line Anterior Draw Test Results Negative PT-OP-M Strength Start: 01/09/20 08:31 Freq: Status: Active Protocol: Document 01/08/20 10:30 DCW (Rec: 01/09/20 11:10 DCW [id number]) Knee Strength Knee Manual Muscle Testing Right Flexion (S2) 3- Fair- Extension (L3) 4 Good PT-OP-Q Treatments Start: 01/09/20 08:31 Freq: Status: Active Protocol: Document 03/01/20 07:32 SP (Rec: 03/01/20 08:16 SP [id number]) Cardio Equipment Recumbent Bicycle Duration (Minutes) 8 Resistance 5 Seat Position 2 Gym Equipment Shuttle Recovery heel raises Resistance 50# Shuttle Recovery Platform Stable Reps/Time 2x10 Unilateral Squats Reps/Time start next tx 25#? Bilateral Squats Resistance 75# Shuttle Recovery Platform Stable Reps/Time 2x20 Therapeutic Exercises Supine Exercises ITB STRETCH with strap Reps/Minutes 2 reps 30 seconds each hip abd Supine Exercise Name hip abd with ER Side right Reps/Minutes x20 Sidelying Exercises stick rolling quad, ITB Sidelying Exercise Name long sitting Side right Equipment Used rolling stick Reps/Minutes time to tolerance Comments instruction self decrease tightness post ex sidelying clam shells Resistance L1 TB Reps/Minutes 2 x 10 reps Comments add to HEP Sitting Exercises 1 Sitting Exercise Name Hamstring Curl Side right Resistance Lv 1 Equipment Used T-band Standing Exercises step down Standing Exercise Name forward Side right Equipment Used 2 step Reps/Minutes 2x5 PT-OP-R Modalities Start: 01/09/20 08:31 Freq: Status: Active Protocol: Document 01/12/20 09:45 DCW (Rec: 01/12/20 10:30 DCW [id number]) Hot Pack/Cold Pack Treatment Cold Pack Location R knee Patient Position Hooklying Treatment Duration (minutes) 10 PT-OP-T Assessment and Plan Start: 01/09/20 08:31 Freq: Status: Active Protocol: Document 03/01/20 07:32 SP (Rec: 03/01/20 08:16 SP [id number]) Physical Therapy Assessment Goals Three Impairment Limited knee AROM flexion to 62? Short Term Goal (STG) R knee flexion AROM to 100? to improve gait on stairs STG Duration 02/08/20 Long-Term Goal (LTG) R knee AROM to 120? flexion to enable pt to properly navigate obstacles while hiking. Two Impairment Pt unable to bear weight through flexed knee Long-Term Goal (LTG) Pt to return to holding a semi -squat position with no pain for 20 minutes in order to return to her normal positioning during her job as a massage therapist LTG Duration 03/10/20 One Impairment Pt does not have an appropriate home exercise program Short Term Goal (STG) Pt to be independent and compliant with an appropriate HEP STG Duration 02/08/20 Assessment Summary Assessment Pt responded well to tx today, focus on quad, hip abd strengthening and self STMs post to allow for home application with good feedback results. Cuing required for knee alignment and hip hinge during eccentric step down 2 step to support progress descending stair mgt. Educated patient importance of self strengthening at home to progress, will work toward SLS and uneven surface strengthening and balance to give self reassurance to walking outside with out fear of falling. Physical Therapy Plan Frequency and Duration Frequency of Treatment 2x/Week Duration of Treatment 10 weeks Plan of Care Start Date 01/08/20 Plan of Care End Date 03/18/20 Therapeutic Interventions Therapeutic Interventions Aquatic Therapy,Gait Training, Home Exercise Program,Joint Mobilizations,Manual Therapy, Neuromuscular Re-education, Patient/Caregiver Education, Self-Care/Home Management,Soft Tissue Mobilization, Therapeutic Exercises Modalities Cold Pack/Ice Massage,Electric Stimulation,Hot Packs, Ultrasound Next Visit Focus/Plan Next Note Type Treatment Note Next Visit Plan Assess pt tolerance to previous treatment: ROM, strengthening including eccentric knee knee flexion for improved stair mgt. Next tx incorporate dynamic strengthening and balance activities for self reassurance during outdoor walks with her dog again. Continue per PT POC: quad strengthening, R knee ROM , review HEP with emphasis on standing exercises with theraband.
--- NOTE | 2020-03-04 16:53 | PT.OTN ---
Current Diagnoses Stiffness of right knee, not elsewhere classified (03/04/20) Other abnormalities of gait and mobility (03/04/20) Nondisplaced comminuted fracture of right patella, initial encounter for closed fracture (03/04/20) Physical Therapy Treatment Note PT-OP-A Visit Information Start: 01/09/20 08:31 Freq: Status: Active Protocol: Document 03/04/20 16:00 DCW (Rec: 03/04/20 16:53 DCW [id number]) Out-Patient Physical Therapy Visit Information Visit Information Visit Type Treatment Note Visit Start Time 16:00 Visit Stop Time 16:45 Total Visit Minutes 45 Visit Number 14 Number of QUICK SKETCH ARTIST Visits 0 Evaluation Information Evaluation Date 01/08/20 PT-OP-B Current Condition Start: 01/09/20 08:31 Freq: Status: Active Protocol: Document 01/08/20 10:30 DCW (Rec: 01/09/20 08:47 DCW [id number]) Current Condition History of Current Condition Onset Date 12/01/19 Current Complaints R knee pain, stiffness, gait difficulty secondary to patellar fracture History of Current Condition Pt is a 54 year old female 5 weeks s/p R patella fracture suffered from falling when walking her dog. Pt has been in a knee immobilizer ever since, and uses bilateral axillary crutches for support. Per ortho consult, pt is WBAT when wearing her immobilizer, however pt entered the clinic today nonweightbearing. Pt states she prefers to not bear weight when she is on unfamiliar surfaces, but is WBAT when at home, often while using only one crutch. 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 With her background, however, she has been able to provide her own lymphatic drainage, which has greatly decreased her edema. PT-OP-C Subjective Start: 01/09/20 08:31 Freq: Status: Active Protocol: Document 03/04/20 16:00 DCW (Rec: 03/04/20 16:53 DCW [id number]) OP-PT Subjective Patient Comments Patient Comments Pt reports she just came from a massage therapy session, and she feels very relaxed. PT-OP-F Manual Assessment Start: 01/09/20 08:31 Freq: Status: Active Protocol: Document 01/08/20 10:30 DCW (Rec: 01/09/20 11:10 DCW [id number]) Manual Assessments Soft Tissue Assessment Soft Tissue Mobility Assessment Mild edema in soft tissue surrounding knee, no notable joint effusion Joint Mobility Assessment Joint Mobility Assessment Significant limitations with knee ROM, mobility of patella, tenderness to palpation along medial joint line PT-OP-G Mobility & Gait Start: 01/09/20 08:31 Freq: Status: Active Protocol: Document 01/08/20 10:30 DCW (Rec: 01/09/20 11:10 DCW [id number]) OP Gait Assessment Gait Gait Assistance Required: Standby Assistance Distance (Feet) 190 Assistive Devices Assistive Device Axillary Crutches Gait Deviations General Gait Pattern Antalgic,Decreased Stride Length Factors Limiting Gait Function Factors Limiting Gait Function Decreased Strength,Limited Range of Motion,Pain,Poor Balance Comments Gait Comments Pt ambulated full lap around gym using unilateral axillary crutch. No indications of imbalance or safety concerns. Pt able to bear ~50% weight through leg with no difficulty while wearing immobilizer. Stair Climbing Evaluation Evaluation Level of Assist On Stairs Standby Assistance Devices Stair Climbing Assistive Devices Left Railing,Right Railing Technique/Endurance Stair Climbing Direction Ascend and Descend Stair Climbing Technique Step to Step Number of Steps Climbed 4 Comments Stair Climbing Comments Proper technique, no safety concerns, knowledgable with up with good/down with bad memory device PT-OP-K Range of Motion Start: 01/09/20 08:31 Freq: Status: Active Protocol: Document 01/08/20 10:30 DCW (Rec: 01/09/20 11:10 DCW [id number]) Knee Goniometric Range of Motion Knee Right Knee ROM WFL No Patient Position Supine Flexion Active (degrees) 62 Flexion Passive (degrees) 91 Extension Active (degrees) 0 Extension Passive (degrees) 0 Left Knee ROM WFL Yes Knee ROM Limitations Knee ROM Limitations Muscle Weakness,Muscle Tone, Pain PT-OP-L Special Tests Start: 01/09/20 11:10 Freq: Status: Active Protocol: Document 01/08/20 10:30 DCW (Rec: 01/09/20 11:12 DCW [id number]) Special Tests Knee Special Tests Varus- 0 Degrees Test Results R Medial pain along joint line , no laxity Valgus- 0 Degrees Test Results R Medial pain along joint line , no laxity Posterior Draw Test Results Negative Patella Tap Test Results Negative Tyron Test Test Results R Medial pain along joint line Anterior Draw Test Results Negative PT-OP-M Strength Start: 01/09/20 08:31 Freq: Status: Active Protocol: Document 01/08/20 10:30 DCW (Rec: 01/09/20 11:10 DCW [id number]) Knee Strength Knee Manual Muscle Testing Right Flexion (S2) 3- Fair- Extension (L3) 4 Good PT-OP-Q Treatments Start: 01/09/20 08:31 Freq: Status: Active Protocol: Document 03/04/20 16:00 DCW (Rec: 03/04/20 16:53 DCW [id number]) Cardio Equipment Recumbent Bicycle Duration (Minutes) 6 Resistance 5 Seat Position 2 Gym Equipment Shuttle Recovery heel raises Resistance 50# Shuttle Recovery Platform Stable Reps/Time 2x10 Unilateral Squats Resistance 37# Shuttle Recovery Platform Stable Reps/Time 2x20 Bilateral Squats Resistance 75# Shuttle Recovery Platform Stable Reps/Time 2x20 Therapeutic Exercises Standing Exercises step down Standing Exercise Name forward Side right Equipment Used 4 step Reps/Minutes 2x5 Other Exercises 1 Other Exercise Name Resisted Ambulation Resistance Green Equipment Used T-band Comments Lateral, Fwd, Bkwd Manual Therapy Treatment Soft Tissue Mobilization quadriceps Comments MFR over the right quadriceps and manual quad stretching patellar tendon Mobilization Type Cross-Friction,Myofascial Release Intensity/Depth Moderate Body Position Hooklying Joint Mobilizations 1 Joint Patella Direction Inf/Sup, Med/Lat Grade II Body Position Sitting Comments knee extension on biodex PT-OP-R Modalities Start: 01/09/20 08:31 Freq: Status: Active Protocol: Document 01/12/20 09:45 DCW (Rec: 01/12/20 10:30 DCW [id number]) Hot Pack/Cold Pack Treatment Cold Pack Location R knee Patient Position Hooklying Treatment Duration (minutes) 10 PT-OP-T Assessment and Plan Start: 01/09/20 08:31 Freq: Status: Active Protocol: Document 03/04/20 16:00 DCW (Rec: 03/04/20 16:53 DCW [id number]) Physical Therapy Assessment Goals Three Impairment Limited knee AROM flexion to 62? Short Term Goal (STG) R knee flexion AROM to 100? to improve gait on stairs STG Duration 02/08/20 Cds Sales Advisor Goal (LTG) R knee AROM to 120? flexion to enable pt to properly navigate obstacles while hiking. Two Impairment Pt unable to bear weight through flexed knee Care Home Goal (LTG) Pt to return to holding a semi -squat position with no pain for 20 minutes in order to return to her normal positioning during her job as a massage therapist LTG Duration 03/10/20 One Impairment Pt does not have an appropriate home exercise program Short Term Goal (STG) Pt to be independent and compliant with an appropriate HEP STG Duration 02/08/20 Assessment Summary Assessment Pt continues to do well, showing improvement in knee ROM, quad control, and abductor strength. Pt was able to go out and walk her dog for the first time since her fall recently, and despite some apprehension, reports everything went well. Physical Therapy Plan Frequency and Duration Frequency of Treatment 2x/Week Duration of Treatment 10 weeks Plan of Care Start Date 01/08/20 Plan of Care End Date 03/18/20 Therapeutic Interventions Therapeutic Interventions Aquatic Therapy,Gait Training, Home Exercise Program,Joint Mobilizations,Manual Therapy, Neuromuscular Re-education, Patient/Caregiver Education, Self-Care/Home Management,Soft Tissue Mobilization, Therapeutic Exercises Modalities Cold Pack/Ice Massage,Electric Stimulation,Hot Packs, Ultrasound Next Visit Focus/Plan Next Note Type Treatment Note Next Visit Plan Assess pt tolerance to previous treatment: ROM, strengthening including eccentric knee knee flexion for improved stair mgt. Next tx incorporate dynamic strengthening and balance activities for self reassurance during outdoor walks with her dog again. Continue per PT POC: quad strengthening, R knee ROM , review HEP with emphasis on standing exercises with theraband.
--- NOTE | 2020-03-10 14:42 | PT.OTN ---
Current Diagnoses Stiffness of right knee, not elsewhere classified (03/10/20) Other abnormalities of gait and mobility (03/10/20) Nondisplaced comminuted fracture of right patella, initial encounter for closed fracture (03/10/20) Physical Therapy Treatment Note PT-OP-A Visit Information Start: 01/09/20 08:31 Freq: Status: Active Protocol: Document 03/10/20 14:34 AM[facility] (Rec: 03/10/20 14:42 [facility] [id number]) Out-Patient Physical Therapy Visit Information Visit Information Visit Type Treatment Note Visit Start Time 12:00 Visit Stop Time 12:45 Total Visit Minutes 45 Visit Number 15 Number of MEN'S LOCKER ROOM ATTENDANT Visits 0 PT-OP-B Current Condition Start: 01/09/20 08:31 Freq: Status: Active Protocol: Document 01/08/20 10:30 DCW (Rec: 01/09/20 08:47 DCW [id number]) Current Condition History of Current Condition Onset Date 12/01/19 Current Complaints R knee pain, stiffness, gait difficulty secondary to patellar fracture History of Current Condition Pt is a 54 year old female 5 weeks s/p R patella fracture suffered from falling when walking her dog. Pt has been in a knee immobilizer ever since, and uses bilateral axillary crutches for support. Per ortho consult, pt is WBAT when wearing her immobilizer, however pt entered the clinic today nonweightbearing. Pt states she prefers to not bear weight when she is on unfamiliar surfaces, but is WBAT when at home, often while using only one crutch. 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 With her background, however, she has been able to provide her own lymphatic drainage, which has greatly decreased her edema. PT-OP-C Subjective Start: 01/09/20 08:31 Freq: Status: Active Protocol: Document 03/10/20 14:34 AM[facility] (Rec: 03/10/20 14:42 [facility] [id number]) OP-PT Subjective Patient Comments Patient Comments pt reports she is doing better , she did twist her knee the other day and felt pain with that. PT-OP-F Manual Assessment Start: 01/09/20 08:31 Freq: Status: Active Protocol: Document 01/08/20 10:30 DCW (Rec: 01/09/20 11:10 DCW [id number]) Manual Assessments Soft Tissue Assessment Soft Tissue Mobility Assessment Mild edema in soft tissue surrounding knee, no notable joint effusion Joint Mobility Assessment Joint Mobility Assessment Significant limitations with knee ROM, mobility of patella, tenderness to palpation along medial joint line PT-OP-G Mobility & Gait Start: 01/09/20 08:31 Freq: Status: Active Protocol: Document 01/08/20 10:30 DCW (Rec: 01/09/20 11:10 DCW [id number]) OP Gait Assessment Gait Gait Assistance Required: Standby Assistance Distance (Feet) 190 Assistive Devices Assistive Device Axillary Crutches Gait Deviations General Gait Pattern Antalgic,Decreased Stride Length Factors Limiting Gait Function Factors Limiting Gait Function Decreased Strength,Limited Range of Motion,Pain,Poor Balance Comments Gait Comments Pt ambulated full lap around gym using unilateral axillary crutch. No indications of imbalance or safety concerns. Pt able to bear ~50% weight through leg with no difficulty while wearing immobilizer. Stair Climbing Evaluation Evaluation Level of Assist On Stairs Standby Assistance Devices Stair Climbing Assistive Devices Left Railing,Right Railing Technique/Endurance Stair Climbing Direction Ascend and Descend Stair Climbing Technique Step to Step Number of Steps Climbed 4 Comments Stair Climbing Comments Proper technique, no safety concerns, knowledgable with up with good/down with bad memory device PT-OP-K Range of Motion Start: 01/09/20 08:31 Freq: Status: Active Protocol: Document 01/08/20 10:30 DCW (Rec: 01/09/20 11:10 DCW [id number]) Knee Goniometric Range of Motion Knee Right Knee ROM WFL No Patient Position Supine Flexion Active (degrees) 62 Flexion Passive (degrees) 91 Extension Active (degrees) 0 Extension Passive (degrees) 0 Left Knee ROM WFL Yes Knee ROM Limitations Knee ROM Limitations Muscle Weakness,Muscle Tone, Pain PT-OP-L Special Tests Start: 01/09/20 11:10 Freq: Status: Active Protocol: Document 01/08/20 10:30 DCW (Rec: 01/09/20 11:12 DCW [id number]) Special Tests Knee Special Tests Varus- 0 Degrees Test Results R Medial pain along joint line , no laxity Valgus- 0 Degrees Test Results R Medial pain along joint line , no laxity Posterior Draw Test Results Negative Patella Tap Test Results Negative Tyron Test Test Results R Medial pain along joint line Anterior Draw Test Results Negative PT-OP-M Strength Start: 01/09/20 08:31 Freq: Status: Active Protocol: Document 01/08/20 10:30 DCW (Rec: 01/09/20 11:10 DCW [id number]) Knee Strength Knee Manual Muscle Testing Right Flexion (S2) 3- Fair- Extension (L3) 4 Good PT-OP-Q Treatments Start: 01/09/20 08:31 Freq: Status: Active Protocol: Document 03/10/20 14:34 AMH (Rec: 03/10/20 14:42 [facility] [id number]) Cardio Equipment Recumbent Elliptical (ioSemantics) Duration (Minutes) 5 Seat Position 4 Gym Equipment Shuttle Recovery Unilateral Squats Resistance 37# Shuttle Recovery Platform Stable Reps/Time 2x20 Bilateral Squats Resistance 75# Shuttle Recovery Platform Stable Reps/Time 2x20 Therapeutic Exercises Supine Exercises ITB STRETCH with strap Supine Exercise Name manual ITB stretch Sidelying Exercises sidelying clam shells Resistance L1 TB Reps/Minutes 2 x 10 reps Comments add to HEP Standing Exercises standing hip hikes Reps/Minutes 2 x 10 reps Manual Therapy Treatment Soft Tissue Mobilization quadriceps Comments MFR over the right quadriceps and manual quad stretching patellar tendon Mobilization Type Cross-Friction,Myofascial Release Intensity/Depth Moderate Body Position Hooklying Manual Techniques iliopsoas stretch Comments manual stretch in mumtaz test position PT-OP-R Modalities Start: 01/09/20 08:31 Freq: Status: Active Protocol: Document 01/12/20 09:45 DCW (Rec: 01/12/20 10:30 DCW [id number]) Hot Pack/Cold Pack Treatment Cold Pack Location R knee Patient Position Hooklying Treatment Duration (minutes) 10 PT-OP-T Assessment and Plan Start: 01/09/20 08:31 Freq: Status: Active Protocol: Document 03/10/20 14:34 AMH (Rec: 03/10/20 14:42 [facility] [id number]) Physical Therapy Assessment Assessment Summary Assessment Still some trigger points and myyofascial tightness in the quads that may be contributing to patella tendon pain. Pt tends to let the knee roll in. I added standing hip hikes as well as reviewed her clam shells to help with gluteus medius activation Physical Therapy Plan Frequency and Duration Frequency of Treatment 2x/Week Duration of Treatment 10 weeks Plan of Care Start Date 01/08/20 Plan of Care End Date 03/18/20 Therapeutic Interventions Therapeutic Interventions Aquatic Therapy,Gait Training, Home Exercise Program,Joint Mobilizations,Manual Therapy, Neuromuscular Re-education, Patient/Caregiver Education, Self-Care/Home Management,Soft Tissue Mobilization, Therapeutic Exercises Modalities Cold Pack/Ice Massage,Electric Stimulation,Hot Packs, Ultrasound Next Visit Focus/Plan Next Note Type Treatment Note Next Visit Plan Assess pt tolerance to previous treatment: ROM, strengthening including eccentric knee knee flexion for improved stair mgt. Next tx incorporate dynamic strengthening and balance activities for self reassurance during outdoor walks with her dog again. Continue per PT POC: quad strengthening, R knee ROM , review HEP with emphasis on standing exercises with theraband.
--- NOTE | 2020-03-15 08:19 | PT.OTN ---
Current Diagnoses Stiffness of right knee, not elsewhere classified (03/15/20) Other abnormalities of gait and mobility (03/15/20) Nondisplaced comminuted fracture of right patella, initial encounter for closed fracture (03/15/20) Physical Therapy Treatment Note PT-OP-A Visit Information Start: 01/09/20 08:31 Freq: Status: Active Protocol: Document 03/15/20 07:31 SP (Rec: 03/15/20 11:34 SP [id number]) Out-Patient Physical Therapy Visit Information Visit Information Visit Type Treatment Note Visit Start Time 07:31 Visit Stop Time 08:19 Total Visit Minutes 48 Visit Number 16 Number of PRINTED CIRCUIT BOARD DESIGNER Visits 1 PT-OP-B Current Condition Start: 01/09/20 08:31 Freq: Status: Active Protocol: Document 01/08/20 10:30 DCW (Rec: 01/09/20 08:47 DCW [id number]) Current Condition History of Current Condition Onset Date 12/01/19 Current Complaints R knee pain, stiffness, gait difficulty secondary to patellar fracture History of Current Condition Pt is a 54 year old female 5 weeks s/p R patella fracture suffered from falling when walking her dog. Pt has been in a knee immobilizer ever since, and uses bilateral axillary crutches for support. Per ortho consult, pt is WBAT when wearing her immobilizer, however pt entered the clinic today nonweightbearing. Pt states she prefers to not bear weight when she is on unfamiliar surfaces, but is WBAT when at home, often while using only one crutch. 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 With her background, however, she has been able to provide her own lymphatic drainage, which has greatly decreased her edema. PT-OP-C Subjective Start: 01/09/20 08:31 Freq: Status: Active Protocol: Document 03/15/20 07:31 SP (Rec: 03/15/20 11:34 SP [id number]) OP-PT Subjective Patient Comments Patient Comments Pt reports was able to do a [employer] motor cycle ride over the weekend 10 hrs as backseat passenger and think well. Reported pain but adductor tightness end of ride and stiffness, soreness next yesterday. Pt stated did alot of walking stretching when had rest stops but no exercise performance during the weekend . Pt stated PT-OP-F Manual Assessment Start: 01/09/20 08:31 Freq: Status: Active Protocol: Document 01/08/20 10:30 DCW (Rec: 01/09/20 11:10 DCW [id number]) Manual Assessments Soft Tissue Assessment Soft Tissue Mobility Assessment Mild edema in soft tissue surrounding knee, no notable joint effusion Joint Mobility Assessment Joint Mobility Assessment Significant limitations with knee ROM, mobility of patella, tenderness to palpation along medial joint line PT-OP-G Mobility & Gait Start: 01/09/20 08:31 Freq: Status: Active Protocol: Document 01/08/20 10:30 DCW (Rec: 01/09/20 11:10 DCW [id number]) OP Gait Assessment Gait Gait Assistance Required: Standby Assistance Distance (Feet) 190 Assistive Devices Assistive Device Axillary Crutches Gait Deviations General Gait Pattern Antalgic,Decreased Stride Length Factors Limiting Gait Function Factors Limiting Gait Function Decreased Strength,Limited Range of Motion,Pain,Poor Balance Comments Gait Comments Pt ambulated full lap around gym using unilateral axillary crutch. No indications of imbalance or safety concerns. Pt able to bear ~50% weight through leg with no difficulty while wearing immobilizer. Stair Climbing Evaluation Evaluation Level of Assist On Stairs Standby Assistance Devices Stair Climbing Assistive Devices Left Railing,Right Railing Technique/Endurance Stair Climbing Direction Ascend and Descend Stair Climbing Technique Step to Step Number of Steps Climbed 4 Comments Stair Climbing Comments Proper technique, no safety concerns, knowledgable with up with good/down with bad memory device PT-OP-K Range of Motion Start: 01/09/20 08:31 Freq: Status: Active Protocol: Document 03/15/20 07:31 SP (Rec: 03/15/20 11:36 SP [id number]) Knee Goniometric Range of Motion Knee Right Knee ROM WFL No Patient Position Supine Flexion Active (degrees) 137 Flexion Passive (degrees) 150 Extension Active (degrees) 0 Extension Passive (degrees) 0 Left Knee ROM WFL Yes PT-OP-L Special Tests Start: 01/09/20 11:10 Freq: Status: Active Protocol: Document 01/08/20 10:30 DCW (Rec: 01/09/20 11:12 DCW [id number]) Special Tests Knee Special Tests Varus- 0 Degrees Test Results R Medial pain along joint line , no laxity Valgus- 0 Degrees Test Results R Medial pain along joint line , no laxity Posterior Draw Test Results Negative Patella Tap Test Results Negative Tyron Test Test Results R Medial pain along joint line Anterior Draw Test Results Negative PT-OP-M Strength Start: 01/09/20 08:31 Freq: Status: Active Protocol: Document 01/08/20 10:30 DCW (Rec: 01/09/20 11:10 DCW [id number]) Knee Strength Knee Manual Muscle Testing Right Flexion (S2) 3- Fair- Extension (L3) 4 Good PT-OP-Q Treatments Start: 01/09/20 08:31 Freq: Status: Active Protocol: Document 03/15/20 07:31 SP (Rec: 03/15/20 11:34 SP [id number]) Cardio Equipment Recumbent Bicycle Duration (Minutes) 8 Resistance 6 Seat Position 2 Gym Equipment Shuttle Recovery Unilateral Squats Resistance 37# Shuttle Recovery Platform Stable Reps/Time 2x20 Bilateral Squats Resistance 75# Shuttle Recovery Platform Stable Reps/Time 2x20 Therapeutic Exercises Standing Exercises eccentric squat TB Resistance TB L1 Comments cued hip hinge and knee alignment step down Standing Exercise Name eccentric forward R knee flexion Side right Equipment Used at corner wall Reps/Minutes 2x10 Comments cued knee with and behind toes and PPT core facilitation for level pelvis PT-OP-R Modalities Start: 01/09/20 08:31 Freq: Status: Active Protocol: Document 01/12/20 09:45 DCW (Rec: 01/12/20 10:30 DCW [id number]) Hot Pack/Cold Pack Treatment Cold Pack Location R knee Patient Position Hooklying Treatment Duration (minutes) 10 PT-OP-T Assessment and Plan Start: 01/09/20 08:31 Freq: Status: Active Protocol: Document 03/15/20 07:31 SP (Rec: 03/15/20 11:34 SP [id number]) Physical Therapy Assessment Goals Three Impairment Limited knee AROM flexion to 62? Short Term Goal (STG) R knee flexion AROM to 100? to improve gait on stairs 03/15/20 Goal MET. STG Duration 02/08/20 Pipe Machine Operator Goal (LTG) R knee AROM to 120? flexion to enable pt to properly navigate obstacles while hiking. 03/15/20 GOAL MET: AROM 137 deg , PROM 150 stopped greater range due pain. 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 LTG Duration 03/10/20 One Impairment Pt does not have an appropriate home exercise program Short Term Goal (STG) Pt to be independent and compliant with an appropriate HEP. STG Duration 02/08/20 Assessment Summary Assessment Pt is progressing in AROM, pain still limits her end range ROM. Requires continued cuing for knee alignment during standing HEP to decreased medial knee pain. 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 HEP review recommended mini squat to wall and hold for self strengthening. Assessed use of TB eccentric squat for self application of leg press does during tx with little medial knee pain if not maintaining proper knee alignment. Physical Therapy Plan Frequency and Duration Frequency of Treatment 2x/Week Duration of Treatment 10 weeks Plan of Care Start Date 01/08/20 Plan of Care End Date 03/18/20 Therapeutic Interventions Therapeutic Interventions Aquatic Therapy,Gait Training, Home Exercise Program,Joint Mobilizations,Manual Therapy, Neuromuscular Re-education, Patient/Caregiver Education, Self-Care/Home Management,Soft Tissue Mobilization, Therapeutic Exercises Modalities Cold Pack/Ice Massage,Electric Stimulation,Hot Packs, Ultrasound Next Visit Focus/Plan Next Note Type Treatment Note Next Visit Plan PN next tx, updated goals progress, need reassess strength, special tests.
--- NOTE | 2020-03-24 12:46 | PT.OTN ---
Current Diagnoses Stiffness of right knee, not elsewhere classified (03/24/20) Other abnormalities of gait and mobility (03/24/20) Nondisplaced comminuted fracture of right patella, initial encounter for closed fracture (03/24/20) Physical Therapy Treatment Note PT-OP-A Visit Information Start: 01/09/20 08:31 Freq: Status: Active Protocol: Document 03/24/20 12:00 DCW (Rec: 03/24/20 12:04 DCW [id number]) Out-Patient Physical Therapy Visit Information Visit Information Visit Type Progress Note Visit Start Time 12:00 Visit Stop Time 12:45 Total Visit Minutes 45 Visit Number 17 Number of TECHNICIAN TELECOMMUNICATION SYSTEMS Visits 0 PT-OP-B Current Condition Start: 01/09/20 08:31 Freq: Status: Active Protocol: Document 01/08/20 10:30 DCW (Rec: 01/09/20 08:47 DCW [id number]) Current Condition History of Current Condition Onset Date 12/01/19 Current Complaints R knee pain, stiffness, gait difficulty secondary to patellar fracture History of Current Condition Pt is a 54 year old female 5 weeks s/p R patella fracture suffered from falling when walking her dog. Pt has been in a knee immobilizer ever since, and uses bilateral axillary crutches for support. Per ortho consult, pt is WBAT when wearing her immobilizer, however pt entered the clinic today nonweightbearing. Pt states she prefers to not bear weight when she is on unfamiliar surfaces, but is WBAT when at home, often while using only one crutch. 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 With her background, however, she has been able to provide her own lymphatic drainage, which has greatly decreased her edema. 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 PT-OP-F Manual Assessment Start: 01/09/20 08:31 Freq: Status: Active Protocol: Document 03/24/20 12:00 DCW (Rec: 03/24/20 12:27 DCW [id number]) Manual Assessments Joint Mobility Assessment Joint Mobility Assessment Red and tenderness along L 5th MTP joint. Stands with excessive pronation on left foot. PT-OP-G Mobility & Gait Start: 01/09/20 08:31 Freq: Status: Active Protocol: Document 03/24/20 12:00 DCW (Rec: 03/24/20 12:27 DCW [id number]) OP Gait Assessment Gait Gait Assistance Required: Independent Assistive Devices Assistive Device None Gait Deviations General Gait Pattern Within Normal Limits Comments Gait Comments Pt gait WNL, no antalgia, goot stride length and push off. Stair Climbing Evaluation Evaluation Level of Assist On Stairs Independent Devices Stair Climbing Assistive Devices Right Railing Technique/Endurance Stair Climbing Direction Ascend and Descend Stair Climbing Technique Step Over Step Comments Stair Climbing Comments Still very cautious, but no pain present, 80% PT-OP-K Range of Motion Start: 01/09/20 08:31 Freq: Status: Active Protocol: Document 03/15/20 07:31 SP (Rec: 03/15/20 11:36 SP [id number]) Knee Goniometric Range of Motion Knee Right Knee ROM WFL No Patient Position Supine Flexion Active (degrees) 137 Flexion Passive (degrees) 150 Extension Active (degrees) 0 Extension Passive (degrees) 0 Left Knee ROM WFL Yes PT-OP-L Special Tests Start: 01/09/20 11:10 Freq: Status: Active Protocol: Document 03/24/20 12:00 DCW (Rec: 03/24/20 12:27 DCW [id number]) Special Tests Knee Special Tests Varus- 0 Degrees Test Results Negative Valgus- 0 Degrees Test Results R Medial pain along joint line , no laxity Posterior Draw Test Results Negative Patella Tap Test Results Negative Tyron Test Test Results Negative Anterior Draw Test Results Negative PT-OP-M Strength Start: 01/09/20 08:31 Freq: Status: Active Protocol: Document 03/24/20 12:00 DCW (Rec: 03/24/20 12:27 DCW [id number]) Hip Strength Hip Manual Muscle Testing Right Flexion (L2) 4 Good Abduction 4 Good Adduction 4 Good External Rotation 4- Good- Internal Rotation 4- Good- Comments Pt struggles to maintain proper 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 Knee Strength Knee Manual Muscle Testing Right Flexion (S2) 4+ Good+ Extension (L3) 4+ Good+ Ankle/Foot Strength Ankle and Foot Manual Muscle Testing Right Dorsiflexion (L4) 4+ Good+ Plantarflexion (S1) 4 Good Inversion 4 Good Eversion (S1) 4 Good Left Dorsiflexion (L4) 4+ Good+ Plantarflexion (S1) 4+ Good+ Inversion 4+ Good+ Eversion (S1) 4+ Good+ PT-OP-Q Treatments Start: 01/09/20 08:31 Freq: Status: Active Protocol: Document 03/24/20 12:00 DCW (Rec: 03/24/20 12:40 DCW [id number]) Gym Equipment Shuttle Recovery heel raises Resistance 50# Shuttle Recovery Platform Stable Reps/Time 2x10 Unilateral Squats Resistance 37# Shuttle Recovery Platform Stable Reps/Time 2x20 Bilateral Squats Resistance 75# Shuttle Recovery Platform Stable Reps/Time 2x20 PT-OP-R Modalities Start: 01/09/20 08:31 Freq: Status: Active Protocol: Document 01/12/20 09:45 DCW (Rec: 01/12/20 10:30 DCW [id number]) Hot Pack/Cold Pack Treatment Cold Pack Location R knee Patient Position Hooklying Treatment Duration (minutes) 10 PT-OP-T Assessment and Plan Start: 01/09/20 08:31 Freq: Status: Active Protocol: Document 03/24/20 12:00 DCW (Rec: 03/24/20 12:40 DCW [id number]) Physical Therapy Assessment Impairments Impairments Activity Tolerance,Functional Activities,Functional Mobility ,Gait,Pain,ROM,Strength Goals Three Impairment Limited knee AROM flexion to 62? Short Term Goal (STG) R knee flexion AROM to 100? to improve gait on stairs 03/15/20 Goal MET. STG Duration Met Public Information Director Goal (LTG) R knee AROM to 120? flexion to enable pt to properly navigate obstacles while hiking. 03/15/20 GOAL MET: AROM 137 deg , PROM 150 stopped greater range due pain. 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 LTG Duration 05/24/20 - Improving One Impairment Pt does not have an appropriate home exercise program Short Term Goal (STG) Pt to be independent and compliant with an appropriate HEP. STG Duration Met Assessment Summary Assessment Pt knee making great progress, met ROM goals, strength making great improvements. Pt is, however, developing secondary deficits in left ankle and foot, as well as her right ankle and hip, due to compensatory changes in her movement. Pt should benefit from a few more skilled therapy sessions to address these developing weaknesses to improve her function and enable her to participate in a return to full-time work. Physical Therapy Plan Frequency and Duration Frequency of Treatment 2x/Week Duration of Treatment 6 weeks Plan of Care Start Date 03/24/20 Plan of Care End Date 05/05/20 Therapeutic Interventions Therapeutic Interventions Aquatic Therapy,Gait Training, Home Exercise Program,Joint Mobilizations,Manual Therapy, Neuromuscular Re-education, Patient/Caregiver Education, Self-Care/Home Management,Soft Tissue Mobilization, Therapeutic Exercises Modalities Cold Pack/Ice Massage,Electric Stimulation,Hot Packs, Ultrasound Next Visit Focus/Plan Next Note Type Treatment Note Next Visit Plan Address pt squat, hip/ankle strength
--- NOTE | 2020-03-24 12:46 | PT.OPPOC ---
Physical, Occupational & Speech Therapy At [facility] Current Diagnoses Stiffness of right knee, not elsewhere classified (03/24/20) Other abnormalities of gait and mobility (03/24/20) Nondisplaced comminuted fracture of right patella, initial encounter for closed fracture (03/24/20) Visit Care Team Role Provider Type HUSAM Mackey Family Provider Advanced Dishing Machine Operator Primary Care Provider Specialty: Family Practice Address: [address] [place] [address], [facility] [[email or web address]] [place], [address] Email: [email or web address] Attending Provider Physician Referring Provider Specialty: Orthopedic Surgery Address: [address] [place] [address], [id number] Email: [email or web address] Plan Of Care PT-OP-T Assessment and Plan Start: 01/09/20 08:31 Freq: Status: Active Protocol: Document 03/24/20 12:00 DCW (Rec: 03/24/20 12:40 DCW [id number]) Physical Therapy Assessment Impairments Impairments Activity Tolerance,Functional Activities,Functional Mobility ,Gait,Pain,ROM,Strength Goals Three Impairment Limited knee AROM flexion to 62? Short Term Goal (STG) R knee flexion AROM to 100? to improve gait on stairs 03/15/20 Goal MET. STG Duration Met Roll Mechanic Goal (LTG) R knee AROM to 120? flexion to enable pt to properly navigate obstacles while hiking. 03/15/20 GOAL MET: AROM 137 deg , PROM 150 stopped greater range due pain. 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 LTG Duration 05/24/20 - Improving One Impairment Pt does not have an appropriate home exercise program Short Term Goal (STG) Pt to be independent and compliant with an appropriate HEP. STG Duration Met Assessment Summary Assessment Pt knee making great progress, met ROM goals, strength making great improvements. Pt is, however, developing secondary deficits in left ankle and foot, as well as her right ankle and hip, due to compensatory changes in her movement. Pt should benefit from a few more skilled therapy sessions to address these developing weaknesses to improve her function and enable her to participate in a return to full-time work. Physical Therapy Plan Frequency and Duration Frequency of Treatment 2x/Week Duration of Treatment 6 weeks Plan of Care Start Date 03/24/20 Plan of Care End Date 05/05/20 Therapeutic Interventions Therapeutic Interventions Aquatic Therapy,Gait Training, Home Exercise Program,Joint Mobilizations,Manual Therapy, Neuromuscular Re-education, Patient/Caregiver Education, Self-Care/Home Management,Soft Tissue Mobilization, Therapeutic Exercises Modalities Cold Pack/Ice Massage,Electric Stimulation,Hot Packs, Ultrasound Next Visit Focus/Plan Next Note Type Treatment Note Next Visit Plan Address pt squat, hip/ankle strength Plan of Care Dates Plan of Care Start Date 03/24/20 Plan of Care End Date 05/05/20 Electronically Signed by: Gennaro Granados, PT 03/24/20 [id number] Please Sign and Return: I have reviewed this Plan of Care and certify that the skilled therapy services above are required to meet the patient?s needs. Physician Signature Date Printed Name and Credentials Clinical Instructor Signature Printed Name and Credentials
--- NOTE | 2020-03-26 12:39 | PT.OTN ---
Current Diagnoses Stiffness of right knee, not elsewhere classified (03/26/20) Other abnormalities of gait and mobility (03/26/20) Nondisplaced comminuted fracture of right patella, initial encounter for closed fracture (03/26/20) Physical Therapy Treatment Note PT-OP-A Visit Information Start: 01/09/20 08:31 Freq: Status: Active Protocol: Document 03/26/20 12:00 DCW (Rec: 03/26/20 12:39 DCW [id number]) Out-Patient Physical Therapy Visit Information Visit Information Visit Type Treatment Note Visit Start Time 12:00 Visit Stop Time 12:45 Total Visit Minutes 45 Visit Number 18 Number of TRUANT OFFICER Visits 0 PT-OP-B Current Condition Start: 01/09/20 08:31 Freq: Status: Active Protocol: Document 01/08/20 10:30 DCW (Rec: 01/09/20 08:47 DCW [id number]) Current Condition History of Current Condition Onset Date 12/01/19 Current Complaints R knee pain, stiffness, gait difficulty secondary to patellar fracture History of Current Condition Pt is a 54 year old female 5 weeks s/p R patella fracture suffered from falling when walking her dog. Pt has been in a knee immobilizer ever since, and uses bilateral axillary crutches for support. Per ortho consult, pt is WBAT when wearing her immobilizer, however pt entered the clinic today nonweightbearing. Pt states she prefers to not bear weight when she is on unfamiliar surfaces, but is WBAT when at home, often while using only one crutch. 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 With her background, however, she has been able to provide her own lymphatic drainage, which has greatly decreased her edema. PT-OP-C Subjective Start: 01/09/20 08:31 Freq: Status: Active Protocol: Document 03/26/20 12:00 DCW (Rec: 03/26/20 12:39 DCW [id number]) OP-PT Subjective Patient Comments Patient Comments Pt reports she put in her old orthotics after her session Sunday and instantly the pain was gone. PT-OP-F Manual Assessment Start: 07/10/20 08:31 Freq: Status: Active Protocol: Document 03/24/20 12:00 DCW (Rec: 03/24/20 12:27 DCW [id number]) Manual Assessments Joint Mobility Assessment Joint Mobility Assessment Red and tenderness along L 5th MTP joint. Stands with excessive pronation on left foot. PT-OP-G Mobility & Gait Start: 01/09/20 08:31 Freq: Status: Active Protocol: Document 03/24/20 12:00 DCW (Rec: 03/24/20 12:27 DCW [id number]) OP Gait Assessment Gait Gait Assistance Required: Independent Assistive Devices Assistive Device None Gait Deviations General Gait Pattern Within Normal Limits Comments Gait Comments Pt gait WNL, no antalgia, goot stride length and push off. Stair Climbing Evaluation Evaluation Level of Assist On Stairs Independent Devices Stair Climbing Assistive Devices Right Railing Technique/Endurance Stair Climbing Direction Ascend and Descend Stair Climbing Technique Step Over Step Comments Stair Climbing Comments Still very cautious, but no pain present, 80% PT-OP-K Range of Motion Start: 01/09/20 08:31 Freq: Status: Active Protocol: Document 03/15/20 07:31 SP (Rec: 03/15/20 11:36 SP [id number]) Knee Goniometric Range of Motion Knee Right Knee ROM WFL No Patient Position Supine Flexion Active (degrees) 137 Flexion Passive (degrees) 150 Extension Active (degrees) 0 Extension Passive (degrees) 0 Left Knee ROM WFL Yes PT-OP-L Special Tests Start: 01/09/20 11:10 Freq: Status: Active Protocol: Document 03/24/20 12:00 DCW (Rec: 03/24/20 12:27 DCW [id number]) Special Tests Knee Special Tests Varus- 0 Degrees Test Results Negative Valgus- 0 Degrees Test Results R Medial pain along joint line , no laxity Posterior Draw Test Results Negative Patella Tap Test Results Negative Tyron Test Test Results Negative Anterior Draw Test Results Negative PT-OP-M Strength Start: 01/09/20 08:31 Freq: Status: Active Protocol: Document 03/24/20 12:00 DCW (Rec: 03/24/20 12:27 DCW [id number]) Hip Strength Hip Manual Muscle Testing Right Flexion (L2) 4 Good Abduction 4 Good Adduction 4 Good External Rotation 4- Good- Internal Rotation 4- Good- Comments Pt struggles to maintain proper 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 Knee Strength Knee Manual Muscle Testing Right Flexion (S2) 4+ Good+ Extension (L3) 4+ Good+ Ankle/Foot Strength Ankle and Foot Manual Muscle Testing Right Dorsiflexion (L4) 4+ Good+ Plantarflexion (S1) 4 Good Inversion 4 Good Eversion (S1) 4 Good Left Dorsiflexion (L4) 4+ Good+ Plantarflexion (S1) 4+ Good+ Inversion 4+ Good+ Eversion (S1) 4+ Good+ PT-OP-Q Treatments Start: 01/09/20 08:31 Freq: Status: Active Protocol: Document 03/26/20 12:00 DCW (Rec: 03/26/20 12:39 DCW [id number]) Gym Equipment Shuttle Recovery heel raises Resistance 50# Shuttle Recovery Platform Stable Reps/Time 2x10 Unilateral Squats Resistance 50# Shuttle Recovery Platform Stable Reps/Time 2x20 Bilateral Squats Resistance 87# Shuttle Recovery Platform Stable Reps/Time 2x20 Therapeutic Exercises Supine Exercises 1 Supine Exercise Name SLR Side bilateral Resistance 5# Sidelying Exercises 2 Sidelying Exercise Name Triple Threat/6-way Clam Shell 1 Sidelying Exercise Name Reverse Clam Shell Resistance Lv 2 Equipment Used T-band sidelying clam shells Sidelying Exercise Name Clam Shell Resistance Lv 2 Equipment Used T-band Sitting Exercises 1 Sitting Exercise Name 4-way ankle flexion Side bilateral Resistance Lv 2 Equipment Used T-band Standing Exercises step down Standing Exercise Name eccentric forward R knee flexion Side right Equipment Used 6 step Reps/Minutes 2x10 Manual Therapy Treatment Joint Mobilizations 1 Joint MWM of Pelvis Direction Resisted L flexion/R extension Body Position Supine PT-OP-R Modalities Start: 01/09/20 08:31 Freq: Status: Active Protocol: Document 01/12/20 09:45 DCW (Rec: 01/12/20 10:30 DCW [id number]) Hot Pack/Cold Pack Treatment Cold Pack Location R knee Patient Position Hooklying Treatment Duration (minutes) 10 PT-OP-T Assessment and Plan Start: 01/09/20 08:31 Freq: Status: Active Protocol: Document 03/26/20 12:00 DCW (Rec: 03/26/20 12:39 DCW [id number]) Physical Therapy Assessment Impairments Impairments Activity Tolerance,Functional Activities,Functional Mobility ,Gait,Pain,ROM,Strength Goals Three Impairment Limited knee AROM flexion to 62? Short Term Goal (STG) R knee flexion AROM to 100? to improve gait on stairs 03/15/20 Goal MET. STG Duration Met Log Stacker Operator Goal (LTG) R knee AROM to 120? flexion to enable pt to properly navigate obstacles while hiking. 03/15/20 GOAL MET: AROM 137 deg , PROM 150 stopped greater range due pain. 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 LTG Duration 05/24/20 - Improving One Impairment Pt does not have an appropriate home exercise program Short Term Goal (STG) Pt to be independent and compliant with an appropriate HEP. STG Duration Met Assessment Summary Assessment Pt tolerating addition of hip and ankle strengthening well, although clearly fatigued pretty quickly Physical Therapy Plan Frequency and Duration Frequency of Treatment 2x/Week Duration of Treatment 6 weeks Plan of Care Start Date 03/24/20 Plan of Care End Date 05/05/20 Therapeutic Interventions Therapeutic Interventions Aquatic Therapy,Gait Training, Home Exercise Program,Joint Mobilizations,Manual Therapy, Neuromuscular Re-education, Patient/Caregiver Education, Self-Care/Home Management,Soft Tissue Mobilization, Therapeutic Exercises Modalities Cold Pack/Ice Massage,Electric Stimulation,Hot Packs, Ultrasound Next Visit Focus/Plan Next Note Type Treatment Note Next Visit Plan Address pt squat, hip/ankle strength
--- NOTE | 2020-03-31 10:31 | PT.OTN ---
Current Diagnoses Stiffness of right knee, not elsewhere classified (03/31/20) Other abnormalities of gait and mobility (03/31/20) Nondisplaced comminuted fracture of right patella, initial encounter for closed fracture (03/31/20) Physical Therapy Treatment Note PT-OP-A Visit Information Start: 01/09/20 08:31 Freq: Status: Active Protocol: Document 03/31/20 09:45 DCW (Rec: 03/31/20 10:31 DCW [id number]) Out-Patient Physical Therapy Visit Information Visit Information Visit Type Treatment Note Visit Start Time 09:45 Visit Stop Time 10:30 Total Visit Minutes 45 Visit Number 19 Number of CHILD AND ADOLESCENT THERAPIST Visits 0 PT-OP-B Current Condition Start: 01/09/20 08:31 Freq: Status: Active Protocol: Document 01/08/20 10:30 DCW (Rec: 01/09/20 08:47 DCW [id number]) Current Condition History of Current Condition Onset Date 12/01/19 Current Complaints R knee pain, stiffness, gait difficulty secondary to patellar fracture History of Current Condition Pt is a 54 year old female 5 weeks s/p R patella fracture suffered from falling when walking her dog. Pt has been in a knee immobilizer ever since, and uses bilateral axillary crutches for support. Per ortho consult, pt is WBAT when wearing her immobilizer, however pt entered the clinic today nonweightbearing. Pt states she prefers to not bear weight when she is on unfamiliar surfaces, but is WBAT when at home, often while using only one crutch. 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 With her background, however, she has been able to provide her own lymphatic drainage, which has greatly decreased her edema. PT-OP-C Subjective Start: 01/09/20 08:31 Freq: Status: Active Protocol: Document 03/31/20 09:45 DCW (Rec: 03/31/20 10:31 DCW [id number]) OP-PT Subjective Patient Comments Patient Comments Pt reports her life has been chaos since her last visit, so she has not been compliant with her HEP, and has been exhausted. Pt does note she is still feeling much better with her orthotics. PT-OP-F Manual Assessment Start: 01/09/20 08:31 Freq: Status: Active Protocol: Document 03/24/20 12:00 DCW (Rec: 03/24/20 12:27 DCW [id number]) Manual Assessments Joint Mobility Assessment Joint Mobility Assessment Red and tenderness along L 5th MTP joint. Stands with excessive pronation on left foot. PT-OP-G Mobility & Gait Start: 01/09/20 08:31 Freq: Status: Active Protocol: Document 03/24/20 12:00 DCW (Rec: 03/24/20 12:27 DCW [id number]) OP Gait Assessment Gait Gait Assistance Required: Independent Assistive Devices Assistive Device None Gait Deviations General Gait Pattern Within Normal Limits Comments Gait Comments Pt gait WNL, no antalgia, goot stride length and push off. Stair Climbing Evaluation Evaluation Level of Assist On Stairs Independent Devices Stair Climbing Assistive Devices Right Railing Technique/Endurance Stair Climbing Direction Ascend and Descend Stair Climbing Technique Step Over Step Comments Stair Climbing Comments Still very cautious, but no pain present, 80% PT-OP-K Range of Motion Start: 01/09/20 08:31 Freq: Status: Active Protocol: Document 03/15/20 07:31 SP (Rec: 03/15/20 11:36 SP [id number]) Knee Goniometric Range of Motion Knee Right Knee ROM WFL No Patient Position Supine Flexion Active (degrees) 137 Flexion Passive (degrees) 150 Extension Active (degrees) 0 Extension Passive (degrees) 0 Left Knee ROM WFL Yes PT-OP-L Special Tests Start: 01/09/20 11:10 Freq: Status: Active Protocol: Document 03/24/20 12:00 DCW (Rec: 03/24/20 12:27 DCW [id number]) Special Tests Knee Special Tests Varus- 0 Degrees Test Results Negative Valgus- 0 Degrees Test Results R Medial pain along joint line , no laxity Posterior Draw Test Results Negative Patella Tap Test Results Negative Tyron Test Test Results Negative Anterior Draw Test Results Negative PT-OP-M Strength Start: 01/09/20 08:31 Freq: Status: Active Protocol: Document 03/24/20 12:00 DCW (Rec: 03/24/20 12:27 DCW [id number]) Hip Strength Hip Manual Muscle Testing Right Flexion (L2) 4 Good Abduction 4 Good Adduction 4 Good External Rotation 4- Good- Internal Rotation 4- Good- Comments Pt struggles to maintain proper 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 Knee Strength Knee Manual Muscle Testing Right Flexion (S2) 4+ Good+ Extension (L3) 4+ Good+ Ankle/Foot Strength Ankle and Foot Manual Muscle Testing Right Dorsiflexion (L4) 4+ Good+ Plantarflexion (S1) 4 Good Inversion 4 Good Eversion (S1) 4 Good Left Dorsiflexion (L4) 4+ Good+ Plantarflexion (S1) 4+ Good+ Inversion 4+ Good+ Eversion (S1) 4+ Good+ PT-OP-Q Treatments Start: 01/09/20 08:31 Freq: Status: Active Protocol: Document 03/31/20 09:45 DCW (Rec: 03/31/20 10:31 DCW [id number]) Cardio Equipment Other Cardio Equipment Other Cardio Equipment Fitter - 2 bands (jose alejandro and ) Gym Equipment Shuttle Recovery heel raises Resistance 50# Shuttle Recovery Platform Stable Reps/Time 2x10 Unilateral Squats Resistance 50# Shuttle Recovery Platform Stable Reps/Time 2x20 Bilateral Squats Resistance 87# Shuttle Recovery Platform Stable Reps/Time 2x20 Therapeutic Exercises Sitting Exercises 1 Sitting Exercise Name 4-way ankle flexion Side bilateral Resistance Lv 2 Equipment Used T-band Standing Exercises step down Standing Exercise Name eccentric forward R knee flexion Side right Equipment Used 6 step Reps/Minutes 2x10 3 Standing Exercise Name BAPS Board Side right Resistance Lv 3 Comments DF/PF, Inv/Ev 2 Standing Exercise Name Retro lean into wall 1 Standing Exercise Name Balance board Comments DF/PF, Lateral weight shift PT-OP-R Modalities Start: 01/09/20 08:31 Freq: Status: Active Protocol: Document 01/12/20 09:45 DCW (Rec: 01/12/20 10:30 DCW [id number]) Hot Pack/Cold Pack Treatment Cold Pack Location R knee Patient Position Hooklying Treatment Duration (minutes) 10 PT-OP-T Assessment and Plan Start: 01/09/20 08:31 Freq: Status: Active Protocol: Document 03/31/20 09:45 DCW (Rec: 03/31/20 10:31 DCW [id number]) Physical Therapy Assessment Impairments Impairments Activity Tolerance,Functional Activities,Functional Mobility ,Gait,Pain,ROM,Strength Goals Three Impairment Limited knee AROM flexion to 62? Short Term Goal (STG) R knee flexion AROM to 100? to improve gait on stairs 03/15/20 Goal MET. STG Duration Met [employer] Counselor Goal (LTG) R knee AROM to 120? flexion to enable pt to properly navigate obstacles while hiking. 03/15/20 GOAL MET: AROM 137 deg , PROM 150 stopped greater range due pain. LTG Duration Met Two Impairment Pt unable to bear weight through flexed knee Care Home Goal (LTG) Pt to return to holding a semi -squat position with no pain for 20 minutes in order to return to her normal positioning during her job as a massage therapist 03/15/20 Progressing: able to maintain semi squat activitites approx 5 min during work. LTG Duration 05/24/20 - Improving One Impairment Pt does not have an appropriate home exercise program Short Term Goal (STG) Pt to be independent and compliant with an appropriate HEP. STG Duration Met Assessment Summary Assessment Pt continuing to progress with increased resistance and difficulty of hip, ankle, and knee stabilization activities. Minimal limitations/activity restrictions at this time. Physical Therapy Plan Frequency and Duration Frequency of Treatment 2x/Week Duration of Treatment 6 weeks Plan of Care Start Date 03/24/20 Plan of Care End Date 05/05/20 Therapeutic Interventions Therapeutic Interventions Aquatic Therapy,Gait Training, Home Exercise Program,Joint Mobilizations,Manual Therapy, Neuromuscular Re-education, Patient/Caregiver Education, Self-Care/Home Management,Soft Tissue Mobilization, Therapeutic Exercises Modalities Cold Pack/Ice Massage,Electric Stimulation,Hot Packs, Ultrasound Next Visit Focus/Plan Next Note Type Treatment Note Next Visit Plan Assess response to last treatment, continue to progress hip/knee/ankle stabilization
--- NOTE | 2020-04-06 10:32 | PT.OTN ---
Current Diagnoses Stiffness of right knee, not elsewhere classified (04/06/20) Other abnormalities of gait and mobility (04/06/20) Nondisplaced comminuted fracture of right patella, initial encounter for closed fracture (04/06/20) Physical Therapy Treatment Note PT-OP-A Visit Information Start: 01/09/20 08:31 Freq: Status: Active Protocol: Document 04/06/20 09:48 SP (Rec: 04/06/20 11:39 SP [id number]) Out-Patient Physical Therapy Visit Information Visit Information Visit Type Treatment Note Visit Start Time 09:48 Visit Stop Time 10:32 Total Visit Minutes 44 Visit Number 20 Number of SPECIAL DELIVERY CARRIER Visits 1 PT-OP-B Current Condition Start: 01/09/20 08:31 Freq: Status: Active Protocol: Document 01/08/20 10:30 DCW (Rec: 01/09/20 08:47 DCW [id number]) Current Condition History of Current Condition Onset Date 12/01/19 Current Complaints R knee pain, stiffness, gait difficulty secondary to patellar fracture History of Current Condition Pt is a 54 year old female 5 weeks s/p R patella fracture suffered from falling when walking her dog. Pt has been in a knee immobilizer ever since, and uses bilateral axillary crutches for support. Per ortho consult, pt is WBAT when wearing her immobilizer, however pt entered the clinic today nonweightbearing. Pt states she prefers to not bear weight when she is on unfamiliar surfaces, but is WBAT when at home, often while using only one crutch. 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 With her background, however, she has been able to provide her own lymphatic drainage, which has greatly decreased her edema. PT-OP-C Subjective Start: 01/09/20 08:31 Freq: Status: Active Protocol: Document 04/06/20 09:48 SP (Rec: 04/06/20 11:39 SP [id number]) OP-PT Subjective Patient Comments Patient Comments Pt reported noticed that able to move normally with some pain with deep squats to change jackie litter box and pivot turns. Is able to walk dog again on level surfaces at [facility] approx 20 min. PT-OP-F Manual Assessment Start: 01/09/20 08:31 Freq: Status: Active Protocol: Document 03/24/20 12:00 DCW (Rec: 03/24/20 12:27 DCW [id number]) Manual Assessments Joint Mobility Assessment Joint Mobility Assessment Red and tenderness along L 5th MTP joint. Stands with excessive pronation on left foot. PT-OP-G Mobility & Gait Start: 01/09/20 08:31 Freq: Status: Active Protocol: Document 03/24/20 12:00 DCW (Rec: 03/24/20 12:27 DCW [id number]) OP Gait Assessment Gait Gait Assistance Required: Independent Assistive Devices Assistive Device None Gait Deviations General Gait Pattern Within Normal Limits Comments Gait Comments Pt gait WNL, no antalgia, goot stride length and push off. Stair Climbing Evaluation Evaluation Level of Assist On Stairs Independent Devices Stair Climbing Assistive Devices Right Railing Technique/Endurance Stair Climbing Direction Ascend and Descend Stair Climbing Technique Step Over Step Comments Stair Climbing Comments Still very cautious, but no pain present, 80% PT-OP-K Range of Motion Start: 01/09/20 08:31 Freq: Status: Active Protocol: Document 03/15/20 07:31 SP (Rec: 03/15/20 11:36 SP [id number]) Knee Goniometric Range of Motion Knee Right Knee ROM WFL No Patient Position Supine Flexion Active (degrees) 137 Flexion Passive (degrees) 150 Extension Active (degrees) 0 Extension Passive (degrees) 0 Left Knee ROM WFL Yes PT-OP-L Special Tests Start: 01/09/20 11:10 Freq: Status: Active Protocol: Document 03/24/20 12:00 DCW (Rec: 03/24/20 12:27 DCW [id number]) Special Tests Knee Special Tests Varus- 0 Degrees Test Results Negative Valgus- 0 Degrees Test Results R Medial pain along joint line , no laxity Posterior Draw Test Results Negative Patella Tap Test Results Negative Tyron Test Test Results Negative Anterior Draw Test Results Negative PT-OP-M Strength Start: 01/09/20 08:31 Freq: Status: Active Protocol: Document 03/24/20 12:00 DCW (Rec: 03/24/20 12:27 DCW [id number]) Hip Strength Hip Manual Muscle Testing Right Flexion (L2) 4 Good Abduction 4 Good Adduction 4 Good External Rotation 4- Good- Internal Rotation 4- Good- Comments Pt struggles to maintain proper 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 Knee Strength Knee Manual Muscle Testing Right Flexion (S2) 4+ Good+ Extension (L3) 4+ Good+ Ankle/Foot Strength Ankle and Foot Manual Muscle Testing Right Dorsiflexion (L4) 4+ Good+ Plantarflexion (S1) 4 Good Inversion 4 Good Eversion (S1) 4 Good Left Dorsiflexion (L4) 4+ Good+ Plantarflexion (S1) 4+ Good+ Inversion 4+ Good+ Eversion (S1) 4+ Good+ PT-OP-Q Treatments Start: 01/09/20 08:31 Freq: Status: Active Protocol: Document 04/06/20 09:48 SP (Rec: 04/06/20 11:39 SP [id number]) Cardio Equipment Recumbent Bicycle Duration (Minutes) 8 Resistance 6 Seat Position 2 Therapeutic Exercises Prone Exercises quad stretch Side right Equipment Used strap Reps/Minutes 30 x3 Comments self PROM 142 deg Standing Exercises 2 Standing Exercise Name Retro lean into wall- isometric squat Reps/Minutes 32 sec, 25 sec Comments cued knee and back alignment for work stance (MT) Other Exercises lunge knee ROM w/ chair or floor Other Exercise Name also in 1/2 kneel Side right Resistance AROM Equipment Used contact back of chair Reps/Minutes x10 Therapeutic Activity Therapeutic Activity on/ off floor, WBOS/split stance Reps/Minutes 24 Comments education for body mechanics during massage squat pos/use elevated stool, 1/2 kneel to change jackie litter box PT-OP-R Modalities Start: 01/09/20 08:31 Freq: Status: Active Protocol: Document 01/12/20 09:45 DCW (Rec: 01/12/20 10:30 DCW [id number]) Hot Pack/Cold Pack Treatment Cold Pack Location R knee Patient Position Hooklying Treatment Duration (minutes) 10 PT-OP-T Assessment and Plan Start: 01/09/20 08:31 Freq: Status: Active Protocol: Document 04/06/20 09:48 SP (Rec: 04/06/20 11:39 SP [id number]) Physical Therapy Assessment Goals Three Impairment Limited knee AROM flexion to 62? Short Term Goal (STG) R knee flexion AROM to 100? to improve gait on stairs 03/15/20 Goal MET. STG Duration Met Instrumentation Tech Goal (LTG) R knee AROM to 120? flexion to enable pt to properly navigate obstacles while hiking. 03/15/20 GOAL MET: AROM 137 deg , PROM 150 stopped greater range due pain. 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 LTG Duration 05/24/20 - Improving One Impairment Pt does not have an appropriate home exercise program Short Term Goal (STG) Pt to be independent and compliant with an appropriate HEP. STG Duration Met Assessment Summary Assessment Tx focused on body mechanics squat postioning during work as massage therapist utilizing posture and stool if needed and on/ off floor to allow for changing jackie litter box in 1/2 kneel with good feedback results post demonstration given and cuing for LE positioning. Reviewed isometric squat hold to incorporate again in HEP and R knee flexion ROM lunge stance on floor or chair to loosen up knee joint before open chain activities to success. Pt responded well to tx and able to perform better end of tx for home/ work. Educated self patella mob if R knee tight. Added prone quad stretch with for assist ROM warm up to perform 1/2 knee ROM for ADL. Physical Therapy Plan Frequency and Duration Frequency of Treatment 2x/Week Duration of Treatment 6 weeks Plan of Care Start Date 03/24/20 Plan of Care End Date 05/05/20
--- NOTE | 2020-04-20 17:44 | PT.OTN ---
Current Diagnoses Stiffness of right knee, not elsewhere classified (04/20/20) Other abnormalities of gait and mobility (04/20/20) Nondisplaced comminuted fracture of right patella, initial encounter for closed fracture (04/20/20) Physical Therapy Treatment Note PT-OP-A Visit Information Start: 01/09/20 08:31 Freq: Status: Active Protocol: Document 04/20/20 17:22 AMH (Rec: 04/20/20 17:44 AMH [id number]) Out-Patient Physical Therapy Visit Information Visit Information Visit Type Treatment Note Visit Start Time 10:30 Visit Stop Time 11:15 Total Visit Minutes 45 Visit Number 21 Number of FOREST ECOLOGY PROFESSOR Visits 0 PT-OP-B Current Condition Start: 01/09/20 08:31 Freq: Status: Active Protocol: Document 01/08/20 10:30 DCW (Rec: 01/09/20 08:47 DCW [id number]) Current Condition History of Current Condition Onset Date 12/01/19 Current Complaints R knee pain, stiffness, gait difficulty secondary to patellar fracture History of Current Condition Pt is a 54 year old female 5 weeks s/p R patella fracture suffered from falling when walking her dog. Pt has been in a knee immobilizer ever since, and uses bilateral axillary crutches for support. Per ortho consult, pt is WBAT when wearing her immobilizer, however pt entered the clinic today nonweightbearing. Pt states she prefers to not bear weight when she is on unfamiliar surfaces, but is WBAT when at home, often while using only one crutch. 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 With her background, however, she has been able to provide her own lymphatic drainage, which has greatly decreased her edema. PT-OP-C Subjective Start: 01/09/20 08:31 Freq: Status: Active Protocol: Document 04/20/20 17:22 AMH (Rec: 04/20/20 17:44 AMH [id number]) OP-PT Subjective Patient Comments Patient Comments Meghan states she wore a different pair of shoes to work yesterday ( a pair of clarks) and was not able to wear her orthotics with them. She would really tell the difference by the end of the day that her right knee and hip were PT-OP-F Manual Assessment Start: 01/09/20 08:31 Freq: Status: Active Protocol: Document 03/24/20 12:00 DCW (Rec: 03/24/20 12:27 DCW [id number]) Manual Assessments Joint Mobility Assessment Joint Mobility Assessment Red and tenderness along L 5th MTP joint. Stands with excessive pronation on left foot. PT-OP-G Mobility & Gait Start: 01/09/20 08:31 Freq: Status: Active Protocol: Document 03/24/20 12:00 DCW (Rec: 03/24/20 12:27 DCW [id number]) OP Gait Assessment Gait Gait Assistance Required: Independent Assistive Devices Assistive Device None Gait Deviations General Gait Pattern Within Normal Limits Comments Gait Comments Pt gait WNL, no antalgia, goot stride length and push off. Stair Climbing Evaluation Evaluation Level of Assist On Stairs Independent Devices Stair Climbing Assistive Devices Right Railing Technique/Endurance Stair Climbing Direction Ascend and Descend Stair Climbing Technique Step Over Step Comments Stair Climbing Comments Still very cautious, but no pain present, 80% PT-OP-K Range of Motion Start: 01/09/20 08:31 Freq: Status: Active Protocol: Document 03/15/20 07:31 SP (Rec: 03/15/20 11:36 SP [id number]) Knee Goniometric Range of Motion Knee Right Knee ROM WFL No Patient Position Supine Flexion Active (degrees) 137 Flexion Passive (degrees) 150 Extension Active (degrees) 0 Extension Passive (degrees) 0 Left Knee ROM WFL Yes PT-OP-L Special Tests Start: 01/09/20 11:10 Freq: Status: Active Protocol: Document 03/24/20 12:00 DCW (Rec: 03/24/20 12:27 DCW [id number]) Special Tests Knee Special Tests Varus- 0 Degrees Test Results Negative Valgus- 0 Degrees Test Results R Medial pain along joint line , no laxity Posterior Draw Test Results Negative Patella Tap Test Results Negative Tyron Test Test Results Negative Anterior Draw Test Results Negative PT-OP-M Strength Start: 01/09/20 08:31 Freq: Status: Active Protocol: Document 03/24/20 12:00 DCW (Rec: 03/24/20 12:27 DCW [id number]) Hip Strength Hip Manual Muscle Testing Right Flexion (L2) 4 Good Abduction 4 Good Adduction 4 Good External Rotation 4- Good- Internal Rotation 4- Good- Comments Pt struggles to maintain proper 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 Knee Strength Knee Manual Muscle Testing Right Flexion (S2) 4+ Good+ Extension (L3) 4+ Good+ Ankle/Foot Strength Ankle and Foot Manual Muscle Testing Right Dorsiflexion (L4) 4+ Good+ Plantarflexion (S1) 4 Good Inversion 4 Good Eversion (S1) 4 Good Left Dorsiflexion (L4) 4+ Good+ Plantarflexion (S1) 4+ Good+ Inversion 4+ Good+ Eversion (S1) 4+ Good+ PT-OP-Q Treatments Start: 01/09/20 08:31 Freq: Status: Active Protocol: Document 04/20/20 17:22 AMH (Rec: 04/20/20 17:44 AMH [id number]) Cardio Equipment Recumbent Stepper (Sci-Fit) Duration (Minutes) 5 Therapeutic Exercises Supine Exercises 2 Supine Exercise Name quad set with SLR and VMO activation 1 Supine Exercise Name quad set with VMO facilitation Sidelying Exercises sidelying clam shells Sidelying Exercise Name sidelying clam shells Reps/Minutes 3 x 10 reps Standing Exercises mini lunges Standing Exercise Name standing mini lunges Reps/Minutes x 10 reps each eccentric squat TB Standing Exercise Name standing squats with hip hinge Reps/Minutes x 10 Manual Therapy Treatment Soft Tissue Mobilization quadriceps Comments MFR over the right quadriceps and manual quad stretching patellar tendon Mobilization Type Cross-Friction,Myofascial Release Intensity/Depth Moderate Body Position Hooklying Manual Techniques iliopsoas stretch Comments manual stretch in mumtaz test position PT-OP-R Modalities Start: 01/09/20 08:31 Freq: Status: Active Protocol: Document 01/12/20 09:45 DCW (Rec: 01/12/20 10:30 DCW [id number]) Hot Pack/Cold Pack Treatment Cold Pack Location R knee Patient Position Hooklying Treatment Duration (minutes) 10 PT-OP-T Assessment and Plan Start: 01/09/20 08:31 Freq: Status: Active Protocol: Document 04/20/20 17:22 AMH (Rec: 04/20/20 17:44 AMH [id number]) Physical Therapy Assessment Assessment Summary Assessment We worked on hip hinge with squat today and we talked about how her orthotics support her whole LE. She still has difficulty with VMO facilitation on the right and ITB is tight. I also started mini lunges and we worked on positioning with working on her clients. Physical Therapy Plan Frequency and Duration Frequency of Treatment 2x/Week Duration of Treatment 6 weeks Plan of Care Start Date 03/24/20 Plan of Care End Date 05/05/20 Next Visit Focus/Plan Next Note Type Treatment Note Next Visit Plan Meghan has 2 visits left in PT. Continue to focus on stabiization as Meghan has returned to 5 massage clients at a time and her knee does get fatigued still.
--- NOTE | 2020-04-28 12:46 | PT.OTN ---
Current Diagnoses Stiffness of right knee, not elsewhere classified (04/28/20) Other abnormalities of gait and mobility (04/28/20) Nondisplaced comminuted fracture of right patella, initial encounter for closed fracture (04/28/20) Physical Therapy Treatment Note PT-OP-A Visit Information Start: 01/09/20 08:31 Freq: Status: Active Protocol: Document 04/28/20 12:00 DCW (Rec: 04/28/20 12:46 DCW [id number]) Out-Patient Physical Therapy Visit Information Visit Information Visit Type Treatment Note Visit Start Time 12:00 Visit Stop Time 12:45 Total Visit Minutes 45 Visit Number 22 Number of CASHIER RECEPTIONIST Visits 0 Evaluation Information Evaluation Date 01/08/20 PT-OP-B Current Condition Start: 01/09/20 08:31 Freq: Status: Active Protocol: Document 01/08/20 10:30 DCW (Rec: 01/09/20 08:47 DCW [id number]) Current Condition History of Current Condition Onset Date 12/01/19 Current Complaints R knee pain, stiffness, gait difficulty secondary to patellar fracture History of Current Condition Pt is a 54 year old female 5 weeks s/p R patella fracture suffered from falling when walking her dog. Pt has been in a knee immobilizer ever since, and uses bilateral axillary crutches for support. Per ortho consult, pt is WBAT when wearing her immobilizer, however pt entered the clinic today nonweightbearing. Pt states she prefers to not bear weight when she is on unfamiliar surfaces, but is WBAT when at home, often while using only one crutch. 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 With her background, however, she has been able to provide her own lymphatic drainage, which has greatly decreased her edema. PT-OP-C Subjective Start: 01/09/20 08:31 Freq: Status: Active Protocol: Document 04/28/20 12:00 DCW (Rec: 04/28/20 12:46 DCW [id number]) OP-PT Subjective Patient Comments Patient Comments Pt reports she is pretty much up to full schedule, and by the end of the day is pretty sore, but overall things are going well. PT-OP-F Manual Assessment Start: 01/09/20 08:31 Freq: Status: Active Protocol: Document 03/24/20 12:00 DCW (Rec: 03/24/20 12:27 DCW [id number]) Manual Assessments Joint Mobility Assessment Joint Mobility Assessment Red and tenderness along L 5th MTP joint. Stands with excessive pronation on left foot. PT-OP-G Mobility & Gait Start: 01/09/20 08:31 Freq: Status: Active Protocol: Document 03/24/20 12:00 DCW (Rec: 03/24/20 12:27 DCW [id number]) OP Gait Assessment Gait Gait Assistance Required: Independent Assistive Devices Assistive Device None Gait Deviations General Gait Pattern Within Normal Limits Comments Gait Comments Pt gait WNL, no antalgia, goot stride length and push off. Stair Climbing Evaluation Evaluation Level of Assist On Stairs Independent Devices Stair Climbing Assistive Devices Right Railing Technique/Endurance Stair Climbing Direction Ascend and Descend Stair Climbing Technique Step Over Step Comments Stair Climbing Comments Still very cautious, but no pain present, 80% PT-OP-K Range of Motion Start: 01/09/20 08:31 Freq: Status: Active Protocol: Document 03/15/20 07:31 SP (Rec: 03/15/20 11:36 SP [id number]) Knee Goniometric Range of Motion Knee Right Knee ROM WFL No Patient Position Supine Flexion Active (degrees) 137 Flexion Passive (degrees) 150 Extension Active (degrees) 0 Extension Passive (degrees) 0 Left Knee ROM WFL Yes PT-OP-L Special Tests Start: 01/09/20 11:10 Freq: Status: Active Protocol: Document 03/24/20 12:00 DCW (Rec: 03/24/20 12:27 DCW [id number]) Special Tests Knee Special Tests Varus- 0 Degrees Test Results Negative Valgus- 0 Degrees Test Results R Medial pain along joint line , no laxity Posterior Draw Test Results Negative Patella Tap Test Results Negative Tyron Test Test Results Negative Anterior Draw Test Results Negative PT-OP-M Strength Start: 01/09/20 08:31 Freq: Status: Active Protocol: Document 03/24/20 12:00 DCW (Rec: 03/24/20 12:27 DCW [id number]) Hip Strength Hip Manual Muscle Testing Right Flexion (L2) 4 Good Abduction 4 Good Adduction 4 Good External Rotation 4- Good- Internal Rotation 4- Good- Comments Pt struggles to maintain proper 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 Knee Strength Knee Manual Muscle Testing Right Flexion (S2) 4+ Good+ Extension (L3) 4+ Good+ Ankle/Foot Strength Ankle and Foot Manual Muscle Testing Right Dorsiflexion (L4) 4+ Good+ Plantarflexion (S1) 4 Good Inversion 4 Good Eversion (S1) 4 Good Left Dorsiflexion (L4) 4+ Good+ Plantarflexion (S1) 4+ Good+ Inversion 4+ Good+ Eversion (S1) 4+ Good+ PT-OP-Q Treatments Start: 01/09/20 08:31 Freq: Status: Active Protocol: Document 04/28/20 12:00 DCW (Rec: 04/28/20 12:46 DCW [id number]) Cardio Equipment Elliptical Duration (Minutes) 5 Resistance 3 Gym Equipment Shuttle Recovery Unilateral Squats Resistance 50# Shuttle Recovery Platform Stable Reps/Time 2x20 Bilateral Squats Resistance 75# Shuttle Recovery Platform Stable Reps/Time 2x20 Manual Therapy Treatment Soft Tissue Mobilization gastroc Body Location R gastroc,achilles tendon Mobilization Type Strumming,Sustained Pressure, Trigger Point Release patellar tendon Mobilization Type Cross-Friction,Myofascial Release Intensity/Depth Moderate Body Position Hooklying Joint Mobilizations 1 Joint Patella mobilization Direction Sup/Inf Grade III Body Position Supine PT-OP-R Modalities Start: 01/09/20 08:31 Freq: Status: Active Protocol: Document 01/12/20 09:45 DCW (Rec: 01/12/20 10:30 DCW [id number]) Hot Pack/Cold Pack Treatment Cold Pack Location R knee Patient Position Hooklying Treatment Duration (minutes) 10 PT-OP-T Assessment and Plan Start: 01/09/20 08:31 Freq: Status: Active Protocol: Document 04/28/20 12:00 DCW (Rec: 04/28/20 12:46 DCW [id number]) Physical Therapy Assessment Impairments Impairments Activity Tolerance,Functional Activities,Functional Mobility ,Gait,Pain,ROM,Strength Goals Three Impairment Limited knee AROM flexion to 62? Short Term Goal (STG) R knee flexion AROM to 100? to improve gait on stairs 03/15/20 Goal MET. STG Duration Met Half-Way Goal (LTG) R knee AROM to 120? flexion to enable pt to properly navigate obstacles while hiking. 03/15/20 GOAL MET: AROM 137 deg , PROM 150 stopped greater range due pain. 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 LTG Duration 05/24/20 - Improving One Impairment Pt does not have an appropriate home exercise program Short Term Goal (STG) Pt to be independent and compliant with an appropriate HEP. STG Duration Met Assessment Summary Assessment Pt doing very well today, progressing to independent HEP , will likely discharge following next week's visit. Physical Therapy Plan Frequency and Duration Frequency of Treatment 2x/Week Duration of Treatment 6 weeks Plan of Care Start Date 03/24/20 Plan of Care End Date 05/05/20 Next Visit Focus/Plan Next Note Type Treatment Note
--- NOTE | 2020-05-05 16:38 | PT.OTN ---
Current Diagnoses Stiffness of right knee, not elsewhere classified (05/05/20) Other abnormalities of gait and mobility (05/05/20) Nondisplaced comminuted fracture of right patella, initial encounter for closed fracture (05/05/20) Physical Therapy Treatment Note PT-OP-A Visit Information Start: 01/09/20 08:31 Freq: Status: Active Protocol: Document 05/05/20 16:00 DCW (Rec: 05/05/20 16:37 DCW [id number]) Out-Patient Physical Therapy Visit Information Visit Information Visit Type Discharge Summary Visit Start Time 16:00 Visit Stop Time 16:30 Total Visit Minutes 30 Visit Number 23 Number of DOG CATCHER Visits 0 Evaluation Information Evaluation Date 01/08/20 PT-OP-B Current Condition Start: 01/09/20 08:31 Freq: Status: Active Protocol: Document 01/08/20 10:30 DCW (Rec: 01/09/20 08:47 DCW [id number]) Current Condition History of Current Condition Onset Date 12/01/19 Current Complaints R knee pain, stiffness, gait difficulty secondary to patellar fracture History of Current Condition Pt is a 54 year old female 5 weeks s/p R patella fracture suffered from falling when walking her dog. Pt has been in a knee immobilizer ever since, and uses bilateral axillary crutches for support. Per ortho consult, pt is WBAT when wearing her immobilizer, however pt entered the clinic today nonweightbearing. Pt states she prefers to not bear weight when she is on unfamiliar surfaces, but is WBAT when at home, often while using only one crutch. 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 With her background, however, she has been able to provide her own lymphatic drainage, which has greatly decreased her edema. PT-OP-C Subjective Start: 01/09/20 08:31 Freq: Status: Active Protocol: Document 05/05/20 16:00 DCW (Rec: 05/05/20 16:36 DCW [id number]) OP-PT Subjective Patient Comments Patient Comments Pt notes she still gets some stiffness after a full day of work. PT-OP-F Manual Assessment Start: 07/10/20 08:31 Freq: Status: Active Protocol: Document 05/05/20 16:00 DCW (Rec: 05/05/20 16:13 DCW [id number]) Manual Assessments Joint Mobility Assessment Joint Mobility Assessment No longer red and tender along L 5th MTP joint. Stands with mild excessive pronation on left foot. PT-OP-G Mobility & Gait Start: 01/09/20 08:31 Freq: Status: Active Protocol: Document 05/05/20 16:00 DCW (Rec: 05/05/20 16:13 DCW [id number]) Stair Climbing Evaluation Comments Stair Climbing Comments Still has to think descending stairs in the AM, but now much more fluid PT-OP-K Range of Motion Start: 01/09/20 08:31 Freq: Status: Active Protocol: Document 03/15/20 07:31 SP (Rec: 03/15/20 11:36 SP [id number]) Knee Goniometric Range of Motion Knee Right Knee ROM WFL No Patient Position Supine Flexion Active (degrees) 137 Flexion Passive (degrees) 150 Extension Active (degrees) 0 Extension Passive (degrees) 0 Left Knee ROM WFL Yes PT-OP-L Special Tests Start: 01/09/20 11:10 Freq: Status: Active Protocol: Document 05/05/20 16:00 DCW (Rec: 05/05/20 16:13 DCW [id number]) Special Tests Knee Special Tests Varus- 0 Degrees Test Results Negative Valgus- 0 Degrees Test Results Negative Posterior Draw Test Results Negative Patella Tap Test Results Negative Tyron Test Test Results Negative Anterior Draw Test Results Negative PT-OP-M Strength Start: 01/09/20 08:31 Freq: Status: Active Protocol: Document 05/05/20 16:00 DCW (Rec: 05/05/20 16:13 DCW [id number]) Hip Strength Hip Manual Muscle Testing Right Flexion (L2) 4+ Good+ Abduction 4+ Good+ Adduction 4+ Good+ External Rotation 4+ Good+ Internal Rotation 4+ Good+ Knee Strength Knee Manual Muscle Testing Right Flexion (S2) 4+ Good+ Extension (L3) 4+ Good+ Ankle/Foot Strength Ankle and Foot Manual Muscle Testing Right Dorsiflexion (L4) 4+ Good+ Plantarflexion (S1) 4+ Good+ Inversion 4+ Good+ Eversion (S1) 4+ Good+ Left Dorsiflexion (L4) 4+ Good+ Plantarflexion (S1) 4+ Good+ Inversion 4+ Good+ Eversion (S1) 4+ Good+ PT-OP-Q Treatments Start: 01/09/20 08:31 Freq: Status: Active Protocol: Document 05/05/20 16:00 DCW (Rec: 05/05/20 16:36 DCW [id number]) Manual Therapy Treatment Other Other Manual Treatments Testing Self-Care/Home Management Treatment Education Other Education HEP, home stretching PT-OP-R Modalities Start: 01/09/20 08:31 Freq: Status: Active Protocol: Document 01/12/20 09:45 DCW (Rec: 01/12/20 10:30 DCW [id number]) Hot Pack/Cold Pack Treatment Cold Pack Location R knee Patient Position Hooklying Treatment Duration (minutes) 10 PT-OP-T Assessment and Plan Start: 01/09/20 08:31 Freq: Status: Active Protocol: Document 05/05/20 16:00 DCW (Rec: 05/05/20 16:36 DCW [id number]) Physical Therapy Assessment Impairments Impairments Activity Tolerance,Functional Activities,Functional Mobility ,Gait,Pain,ROM,Strength Goals Three Impairment Limited knee AROM flexion to 62? Short Term Goal (STG) R knee flexion AROM to 100? to improve gait on stairs 03/15/20 Goal MET. STG Duration Met Educational Program Director Goal (LTG) R knee AROM to 120? flexion to enable pt to properly navigate obstacles while hiking. 03/15/20 GOAL MET: AROM 137 deg , PROM 150 stopped greater range due pain. 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 LTG Duration Met One Impairment Pt does not have an appropriate home exercise program Short Term Goal (STG) Pt to be independent and compliant with an appropriate HEP. STG Duration Met Progress Towards Goals Progress Towards Goals Goals Met Assessment Summary Assessment Pt met all goals, feels confident with HEP, appropriate for discharge aat this time. Physical Therapy Plan Frequency and Duration Frequency of Treatment 2x/Week Duration of Treatment 6 weeks Plan of Care Start Date 03/24/20 Plan of Care End Date 05/05/20 Discharge Physical Therapy Discharge Reasons Goals Met Next Visit Focus/Plan Next Note Type Discharge Summary
== END 2020-05-10 08:35 ==
LOC: PHYS 16:00
PROVIDERS: Family Provider Internal Medicine; PCP Internal Medicine; Referring Provider Orthopaedic Surgery; Visit Provider Orthopaedic Surgery
DX: S82.044A Nondisplaced comminuted fracture of right patella, initial encounter for closed fracture (principal); M25.661 Stiffness of right knee, not elsewhere classified; R26.89 Other abnormalities of gait and mobility
CPT/HCPCS: 97110; 97112; 97116; 97140; 97161; 97530; 97535

== ENCOUNTER → 2020-06-15 13:15 | Outpatient (CLI) | payer OTHER, MEDICAID, SELFPAY ==
[2020-06-15 16:00] LABS: Free T3, Triiodothyronine Free 5.05 pg/mL (2.77-5.27); Free T4, Direct Thyroxine 1.36 ng/dL (0.78-2.19)
[2020-06-15 16:14] LABS: Thyroid Stimulating Hormone 0.087 uIU/mL (0.47-4.68)
== END ==
PROVIDERS: Family Provider Internal Medicine; PCP Family Medicine; Referring Provider Family Medicine; Visit Provider Naturopath
DX: E03.9 Hypothyroidism, unspecified (principal)
CPT/HCPCS: 36415; 84439; 84443; 84481